=== PATIENT | male | born 1960 | race Caucasian/White ===

== ENCOUNTER 2020-09-13 07:16 | Emergency (ER) | payer OTHER, SELFPAY ==
[2020-09-13 07:28] VITALS: BP 124/85; PULSE 89; RESP 14; TEMP 36.6; O2SAT 99; BMI 25.0
--- NOTE | 2020-09-13 07:35 | ED.ALLEREA ---
HPI - Allergic Reaction General Chief complaint: Allergic Reaction Stated complaint: allergic reaction Time Seen by Provider: 09/13/20 07:30 Source: patient Mode of arrival: ambulatory Limitations: no limitations History of Present Illness HPI narrative: intermittent nighttimes/AM hives since July possibly related to new laundry detergent which he hasn't changed yet, he shares a bed and his partner has no symptoms, he just finished a burst of prednisone which helped last week, he has not been able to get into an subcontract manager yet due to COVID19. complaint: hives Onset (ago): week(s) (4) Exposure: cleaning product exposure Symptoms: rash and itching Severity: moderate Previous Allergic Reaction History: none Related Data Previous Rx's Medication Instructions Recorded prednisone 10 mg tablet 10 mg PO DAILY 6 Days #12 tab 09/03/20 cetirizine 10 mg PO DAILY #30 tab 09/13/20 famotidine [Pepcid] 20 mg PO DAILY #30 tab 09/13/20 Allergies Allergy/AdvReac Type Severity Reaction Status Date / Time No Known Allergies Allergy Unverified 05/11/20 14:49 [No Known Allergies*] Review of Systems Review of Systems: Constitutional : No Fever, No Chills ENT/Mouth : no oral swelling, No Hoarseness, No Swallowing Difficulty Eyes: No Eye Pain, No Swelling, No Redness Cardiovascular : No Chest Pain, No SOB Respiratory : No Cough, No Sputum, No Wheezing, No Smoke Exposure, No Dyspnea Gastrointestinal : No Nausea, No Vomiting, No Diarrhea, No abdominal Pain Genitourinary : No Dysuria, No Urinary Frequency, No Hematuria Musculoskeletal : No joint pain, No Myalgias, No Joint Swelling Skin : No Skin Lesions, positive rash Neuro : No Weakness, No Numbness, No Headache Psych : No Anxiety/Panic, No Depression Heme/Lymph: No Bruising, No Lymphadenopathy Endocrine : No Polyuria, No Polydipsia All other systems reviewed and are negative [facility] Past Medical History Medical History (Updated 09/13/20 @ 07:40 by Leelee Peraza DO) Allergic reaction Social History Social History (Updated 09/13/20 @ 07:38 by Leelee Peraza DO) Smoking Status: Never smoker Use of substances other than those prescribed or required for medical reasons: No Advance Directives: No Advance Directives Information Provided: No Physical Exam Vital Signs: Vital Signs: Last Vital Signs Temp 98 F 09/13/20 07:28 Pulse 89 09/13/20 07:28 Resp 14 09/13/20 07:28 BP 124/85 09/13/20 07:28 Pulse Ox 99 09/13/20 07:28 Body Mass Index 25.0 Appearance: Alert. Oriented X3. No acute distress. Eyes: Pupils equal, round and reactive to light. ENT: Pharynx normal. Neck: Normal inspection. Neck supple. CVS: Normal heart rate and rhythm. Pulses normal. Respiratory: No respiratory distress. Breath sounds normal. Abdomen: Soft and non-tender. Skin: Skin warm and dry. Normal skin color. diffuse hives noted on back, extremities Extremities: No lower extremity edema. No calf ttp Neuro: Oriented X 3. No motor deficit. No sensory deficit. MDM - Allergic Reaction MDM Narrative Medical decision making narrative: 60 yo male with no significant PMH dealing with intermittent hives since before [place] - possibly related to new laundry detergent, has taken prednisone with good effect, has not been able to see subcontract manager, he has no resp or oral issues - will start on pepcid and zyrtec until he can be established with subcontract manager, I've also instructed him to stop using detergent Discharge Plan Discharge Clinical Impression: Urticaria Patient Disposition: Home, Self-Care Instructions: Urticaria (ED) Additional Instructions: return to ED for any worsening symptoms or concerns stop using that laundry detergent, you need to clean everything that you've washed with it including bed sheets Prescriptions: New famotidine [Pepcid] 20 mg tablet 20 mg PO DAILY Qty: 30 RF: 0 cetirizine 10 mg tablet 10 mg PO DAILY Qty: 30 RF: 0 No Action prednisone 10 mg tablet 10 mg PO DAILY 6 Days Qty: 12 RF: 0 Referrals: Jorge Montejo PA-C [Primary Care Provider] - 1 day (today as scheduled, you should ask for allergy referral ) Stand Alone Forms: Work/School Release
[2020-09-13] MEDS: Loratadine 10 MG TABLET PO (07:47)
[2020-09-13] MEDS: diphenhydrAMINE HCL 25 MG TABLET PO (07:47)
[2020-09-13] MEDS: predniSONE 20 MG TABLET 60 MG PO (07:47)
[2020-09-13] MEDS: Famotidine 20 MG TABLET PO (07:48)
== END 2020-09-13 08:30 | disposition home or self-care (01) ==
LOC: HO.ED 07:41
PROVIDERS: Emergency Provider Emergency Medicine; PCP Physician Assistant
DX: L50.0 Allergic urticaria (principal); Z86.16 Personal history of COVID-19
CPT/HCPCS: 99283; 99284; Q0163

== ENCOUNTER 2020-09-23 10:13 | Outpatient (REF) | payer OTHER, SELFPAY ==
[2020-09-23 10:29] LABS: Hematocrit 44.6 % (42-52); Hemoglobin 14.6 g/dl (14.0-18.0); Mean Corpuscular HGB Conc 32.7 g/dl (31.0-36.0); Mean Corpuscular Hemoglobin 31.4 pg (27.0-33.0); Mean Corpuscular Volume 95.9 fL (80-98); Mean Platelet Volume 11.8 fL (9.4-12.4); Platelet Count 157 X10*3/uL (160-400); Red Blood Count 4.65 X10*6/uL (4.60-5.80); Red Cell Distribution Width 12.7 % (11.0-16.0); White Blood Count 5.3 X10*3/uL (4.8-10.8)
[2020-09-23 10:54] LABS: Alanine Aminotransferase 31 U/L (0-40); Albumin Level 4.2 g/dL (3.5-5.0); Alkaline Phosphatase 86 U/L (39-117); Anion Gap 12 (12-20); Aspartate Amino Transferase 27 U/L (5-37); Bilirubin Total 0.5 mg/dL (0.0-1.0); Blood Urea Nitrogen 13 mg/dL (9-16); Carbon Dioxide 29 mmol/L (22-29); Chloride 107 mmol/L (96-108); Cholesterol 197 mg/dL; Estimated Glomerular Filt Rate > 60; Glucose Fasting 92 mg/dL (60-99); HDL Cholesterol 67 mg/dL; LDL Cholesterol Calculated 118 mg/dl; Sodium 144 mmol/L (135-145); Total Protein 6.6 g/dL (6.5-8.0); Triglycerides 63 mg/dL
[2020-09-23 11:14] LABS: Prostate Specific Antigen Scr 0.92 ng/mL (<0.05-4.0); TSH reflex Free T4 0.79 uIU/mL (0.32-4.0)
== END 2020-09-23 10:14 | disposition home or self-care (01) ==
LOC: HO.LAB 10:13
PROVIDERS: Visit Provider Physician Assistant
DX: I10 Essential (primary) hypertension (principal); Z13.1 Encounter for screening for diabetes mellitus; Z13.220 Encounter for screening for lipoid disorders; Z13.29 Encounter for screening for other suspected endocrine disorder; Z12.5 Encounter for screening for malignant neoplasm of prostate
CPT/HCPCS: 36415; 80053; 80061; 84153; 84443; 85027

== ENCOUNTER 2021-01-24 11:46 | Day surgery (SDC) | payer OTHER, SELFPAY ==
[2021-01-17 12:56] VITALS: BMI 26.1
--- NOTE | 2021-01-23 11:04 | P.CONAN_ITS ---
HPI - Anesthesia Eval Consult details Narrative: 60yo M for Upper Endoscopy s/p repair of foramen of Morgagni hernia 2013 [facility] Active Problems Active Problems: All Active Problems (Updated 01/17/21 @ 12:50 by Cherry Box) Screening for diabetes mellitus (DM) (Acute) Screening for hypothyroidism (Acute) Screening for hypercholesterolemia (Acute) Constipation (Acute) Annual physical exam (Acute) Acute urticaria (Acute) Past Medical History Medical History Allergic reaction GERD (gastroesophageal reflux disease) Family History Family History Father In good health Mother In good health Surgical History Surgical History (Updated 01/17/21 @ 12:49 by Cherry Box) H/O colonoscopy History of right knee surgery Hx of hernia repair Social History Social History Alcohol intake: current Alcohol intake frequency: a few times a month Patient Tobacco Use Status: Never used Tobacco Advance Directives Information Provided: No Current occupational status: employed Current occupation: [employer] Allergies Allergy/AdvReac Type Severity Reaction Status Date / Time No Known Allergies Allergy Verified 10/25/20 16:08 [No Known Allergies*] Home Medications Medication Instructions Recorded Confirmed Last Taken Type omeprazole 20 mg PO DAILY 01/17/21 01/17/21 Unknown History Exam Exam Date and Time: January 23, 2021 1104 Height,Weight and Vital Signs: Height 6 ft 1 in Weight 89.811 kg Assessment and Plan Assessment Anesthesia Assessment: Chart Reviewed
[2021-01-24 11:58] VITALS: BP 108/73; PULSE 68; RESP 16; TEMP 37.1; O2SAT 98
[2021-01-24] MEDS: Lactated Ringers 1,000 ML 100 ML IVCONT (12:10)
--- NOTE | 2021-01-24 12:48 | P.CONAN_ITS ---
[facility] Active Problems Active Problems: All Active Problems (Updated 01/17/21 @ 12:50 by Cherry hussein) Screening for diabetes mellitus (DM) (Acute) Screening for hypothyroidism (Acute) Screening for hypercholesterolemia (Acute) Constipation (Acute) Annual physical exam (Acute) Acute urticaria (Acute) Past Medical History Medical History Allergic reaction GERD (gastroesophageal reflux disease) Family History Family History Father In good health Mother In good health Surgical History Surgical History (Updated 01/17/21 @ 12:49 by Cherry Box) H/O colonoscopy History of right knee surgery Hx of hernia repair Social History Social History Alcohol intake: current Alcohol intake frequency: a few times a month Patient Tobacco Use Status: Never used Tobacco Advance Directives Information Provided: No Current occupational status: employed Current occupation: [employer] Allergies Allergy/AdvReac Type Severity Reaction Status Date / Time No Known Allergies Allergy Verified 10/25/20 16:08 [No Known Allergies*] Active Medications: Current Medications Generic Name Dose Route Start Last Admin Trade Name Freq PRN Reason Stop Dose Admin Lactated Ringer's 1,000 mls @ 100 mls/hr 01/24/21 12:00 01/24/21 12:10 Lr IVCONT 100 mls/hr .Q10H OCTAVIO Administration Home Medications Medication Instructions Recorded Confirmed Last Taken Type omeprazole 20 mg PO DAILY 01/17/21 01/17/21 Unknown History Exam Exam Date and Time: January 24, 2021 1248 Height,Weight and Vital Signs: Height 6 ft 1 in Weight 89.811 kg Last Vital Signs Temp 98.8 F 01/24/21 11:58 Pulse 68 01/24/21 11:58 Resp 16 01/24/21 11:58 BP 108/73 01/24/21 11:58 Pulse Ox 98 01/24/21 11:58 Airway Mallampati Class: II TM Dist: >3cm Neck ROM: Full Heart: RRR Lungs: CTA
--- NOTE | 2021-01-24 13:04 | MHC.SHP ---
Pre-Procedural Eval Section B Chief Complaint: reflux disease Details of Present Illness: see H&P no changes Relevant Family History (Specify if Yes): Yes Relevant Social History: None Present Medications: see Short Stay Collaborative assessment Medical History: No relevant PMH History of Previous Operations: No relevant previous surgery Allergies: Allergies Allergy/AdvReac Type Severity Reaction Status Date / Time No Known Allergies Allergy Verified 10/25/20 16:08 [No Known Allergies*] Review of Systems Sugical H&P ROS: Negative: Constitution, Cardiovascular, Respiratory, Neurological, Psychiatric, Hem-Onc, Allergic/Immunologic, Gastrointestinal, Genitourinary, Musculoskeletal, Integumentary, Endocrine and Eyes/Ears/Nose/Throat Exam Surgical H&P Exam: Normal: HEENT, Normal: Heart, Normal: Lungs, Normal: Extremities, Normal: Abdomen, Normal: Skin and Normal: Neurological Plan Diagnosis/Plan: Unchanged I have reviewed the history and physical and performed a pertinent physical examination on my patient. No changes have occurred unless specified.
--- NOTE | 2021-01-24 13:22 | P.BOP_ITS ---
Brief Operative Note Date of Service: 01/24/21 Pre-op diagnosis: gerd Post-op diagnosis: same Surgeon: Servando Lange Anesthesia: MAC Was an Supervisor Production Managing used for this Procedure?: No Estimated blood loss (mL): 5 Pathology: other (bxs antrum, egj, duodenum) Condition: stable Disposition: PACU
[2021-01-24 13:24] VITALS: BP 84/56; PULSE 76; RESP 16; TEMP 36.1; O2SAT 99
[2021-01-24 13:39] VITALS: BP 100/61; PULSE 69; RESP 18; O2SAT 99
--- NOTE | 2021-01-25 00:03 | OP_ITS ---
SURGEON: Servando Lange MD INDICATIONS: Gastroesophageal reflux disease. PREOPERATIVE DIAGNOSIS: POSTOPERATIVE DIAGNOSIS: PROCEDURE PERFORMED: Upper endoscopy with biopsy. ESTIMATED BLOOD LOSS: COMPLICATIONS: ANESTHESIA: ASSISTANTS: SPECIMENS: MEDICATIONS: Monitored anesthesia care. DESCRIPTION OF PROCEDURE: History and physical performed. The risks and benefits of the procedure were explained to the patient. Informed consent was obtained. The patient was placed in the left lateral decubitus position. The Olympus video gastroscope was introduced into the esophagus, stomach, and duodenum. Examination was performed. The scope was removed. He tolerated the procedure well and was transferred to recovery area in stable condition. FINDINGS: Esophagus: The esophagus showed an irregular EG junction. There was a sliding hiatal hernia. Stomach: The stomach showed no evidence of masses, ulcers, or polyps. Duodenum: The bulb and second portion were normal. Biopsies were obtained from the second portion of the duodenum, the antrum and the EG junction, which was slightly irregular, but showed no esophagitis. IMPRESSION: Gastroesophageal reflux disease. RECOMMENDATIONS: 1. Follow up the biopsy results. 2. Continue pantoprazole for better control of symptoms. MD STEPHANIE Orr/JACI / [id number]
== END 2021-01-24 14:39 | disposition home or self-care (01) ==
PROVIDERS: PCP Physician Assistant; Visit Provider Internal Medicine Gastroenterology
PROC: 0DJ08ZZ Inspection of Upper Intestinal Tract, Via Natural or Artificial Opening Endoscopic (ICD-10-PCS; CPT 43235; principal; 2021-01-24 13:00)
DX: K21.9 Gastro-esophageal reflux disease without esophagitis (principal); Z79.899 Other long term (current) drug therapy
CPT/HCPCS: 43239; 88305; 88342

== ENCOUNTER 2021-02-19 07:00 | Emergency (ER) | payer OTHER, SELFPAY ==
[2021-02-19 07:19] VITALS: BP 128/72; PULSE 85; RESP 12; TEMP 36.6; O2SAT 99; BMI 25.8
--- NOTE | 2021-02-19 08:24 | ED_ITS ---
HPI - Allergic Reaction General Chief complaint: Allergic Reaction Stated complaint: rash Time Seen by Provider: 02/19/21 08:06 Source: patient Mode of arrival: ambulatory Limitations: no limitations History of Present Illness HPI narrative: 60-year-old male who presents emergency department for evaluation of an hive/urticarial rash. Patient states that he has been hives for the past 6 months. He states that the gets them daily, he describes them as small patches that usually resolves and are in different parts of his body. The patient has seen his PCP and is scheduled to see an oil and gas superintendent 1 month from now. The patient states that 2 weeks prior he was on a course of prednisone and his rash resolved completely. He states that over the past 24 hours the rash at this returned and is over his entire body which is new for him, it is usually over parts his body. The rash is pruritic. he states he has some slight difficulty swallowing. He has had this symptom in the past and had endoscopy which was unremarkable. He denied lightheadedness, dizziness, shortness of breath or dyspnea on exertion. He does have associated nausea with the rash. The patient took a dose of Benadryl and prednisone 60 mg mg this morning and his doctor prescribed a taper over 6 days. The patient has been vaccinated for COVID-19 received to 2nd shot in December of 2020 Related Data Home Medications Medication Instructions Recorded Confirmed omeprazole 20 mg PO DAILY 01/17/21 01/17/21 Previous Rx's Medication Instructions Recorded cetirizine 10 mg tablet 10 mg PO DAILY 90 Days #90 tab 10/25/20 docusate sodium 100 mg capsule 100 mg PO DAILY 90 Days #90 cap 10/25/20 lactulose 20 gram/30 mL oral 20 g PO BID PRN 10 Days #600 ml 10/25/20 solution prednisone 10 mg tablet 10 mg PO DAILY 6 Days #12 tab 02/17/21 epinephrine [EpiPen 2-Sukhdeep] 0.3 mg IM Q10M PRN #2 ea 02/19/21 prednisone 60 mg PO DAILY 3 Days #9 tab 02/19/21 Allergies Allergy/AdvReac Type Severity Reaction Status Date / Time No Known Allergies Allergy Verified 10/25/20 16:08 [No Known Allergies*] Review of Systems Review of Systems: Yes all other systems are reviewed and are negative [facility] Past Medical History [facility] Narrative: Past medical history : GERD ( endoscopy 01/24/2021). 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 Social history: He denies tobacco, drinks alcohol several times a month and he denies drug use. Medical History Allergic reaction GERD (gastroesophageal reflux disease) Surgical History H/O colonoscopy History of right knee surgery Hx of hernia repair Family History Family History Father In good health Mother In good health Social History Social History Alcohol intake: current Alcohol intake frequency: a few times a month Patient Tobacco Use Status: Never used Tobacco Advance Directives: Yes Advance Directives Information Provided: Yes Advance Directives on File: No Current occupational status: employed Current occupation: [employer] Physical Exam Vital Signs: Vital Signs: Last Vital Signs Temp 97.8 F 02/19/21 07:19 Pulse 76 02/19/21 08:43 Resp 16 02/19/21 08:43 BP 105/74 02/19/21 08:43 Pulse Ox 97 02/19/21 08:43 Body Mass Index 25.8 Const: General: cooperative and healthy appearing Orientation/consciousness: oriented to person and oriented to place Limitations: no limitations HENMT: Head: Yes normal to inspection, Yes normocephalic and Yes atraumatic Ears: external ears normal General nose exam: Normal external nose present Face and sinus: Yes normal facial exam Mouth: Normal oral and palatal mucosa present Throat: Yes posterior oropharynx normal Eyes: Periorbital: periorbital findings normal Eyelids: Yes eyelids normal Conjunctivae: conjunctivae normal Sclerae: sclerae normal Corneas: corneas normal Pupils: Equal, round and reactive pupils present Direct Ophthalmoscopy: normal light reflex Neck: Neck: Yes full ROM, Yes no lymphadenopathy, Yes no meningeal signs, Yes trachea midline and Yes supple Chest: Chest palpation & inspection: normal inspection of the chest and normal palpation of entire chest wall Resp: Effort & Inspection: normal respiratory effort and able to speak in complete sentences Auscultation: clear to auscultation bilaterally Cardio: Rate: regular rate Rhythm: regular rhythm Heart sounds: S1 normal heart sound present, S2 normal heart sound present and no murmurs GI: Inspection: Yes normal to inspection Palpation (GI): Soft to palpation, nontender, no guarding, not rigid and No hepatosplenomegaly present : General: Yes no CVA tenderness Back/Spine/Pelvis: Back: no CVA tenderness Cervical Spine: normal cervical lordosis Thoracic/Lumbar Spine: thoracic and lumbar spine normal to inspection Skin: Other: diffuse urticarial rash over his entire body, blanches to pressure Lesions: no lesions Wounds: no wounds Neuro: General: oriented to person, oriented to place and no meningeal signs Cranial nerves: Yes CN's II-XII intact bilaterally and Yes Equal, round and reactive pupils present Cognition (Neuro): normal cognition Motor exam (neuro): 5/5 motor strength present throughout Extrem: General: Yes normal to inspection and Yes full ROM Psych: Appearance: well kempt Mental Status: mental status grossly normal Speech and movement: Normal speech and movement present Affect: normal affect Attitude: cooperative Thought process: Normal thought process present Thought content: Normal thought content present Course Course Course Narrative: 60-year-old male who presents emergency department for evaluation of a diffuse, pruritic, urticarial rash times 1-2 days. Patient has been having an urticarial rash daily for the last 6 months but has never had diffuse urticaria. He has had some slight difficulty swallowing otherwise has no other complaints. Vital signs are stable. Physical examination revealed diffuse, blanching, urticaria rash. The patient will be placed on hospital monitor and treated with epinephrine 0.5 mg IM. He will also be given Solu- Medrol 125 mg IV. 0909: The patient did have improvement of his urticarial rash but not complete resolution after receiving the intramuscular epinephrine and IV Solu-Medrol. The patient has no other concerning symptoms and will be discharged home. I did prescribe an EpiPen for him and discuss the use of this medication for allergic reactions. Patient was advised to take Zyrtec twice a day to see if this improves his urticaria. The patient was given a another prescription for prednisone 60 mg orally to take a total of 5 days a pulse dose and then to taper as prescribed by his doctor. The patient was given verbal and printed instructions prior to discharge. The patient was advised to follow-up with their PCP in 2 days and to return to the emergency department if their symptoms get worse or if they develop any new symptoms that are concerning to them Discharge Plan Discharge Clinical Impression: Urticaria Patient Disposition: Home, Self-Care Instructions: Urticaria (ED) Additional Instructions: You received epinephrine 0.3 mg IM here in emergency department. You also receive Solu-Medrol 125 mg IV ( this is a steroid). I want you to take prednisone 60 mg once a day for total 5 days and then taper to off as directed by your doctor. I am prescribing an epinephrine pen for you in the event that You get severe symptoms such as difficulty swallowing, shortness of breath, lightheadedness, dizziness. Take Zyrtec 1 pill twice a day, this is a long acting antihistamine and this may help with your high. Insert follow-up return Prescriptions: New epinephrine [EpiPen 2-Sukhdeep] 0.3 mg/0.3 mL auto-injector 0.3 mg IM Q10M PRN (Reason: anaphylaxis) Qty: 2 RF: 0 prednisone 20 mg tablet 60 mg PO DAILY 3 Days Qty: 9 RF: 0 No Action prednisone 10 mg tablet 10 mg PO DAILY 6 Days Qty: 12 RF: 0 omeprazole 20 mg Tablet,Delayed Release (Dr/Ec) 20 mg PO DAILY RF: 0 lactulose 20 gram/30 mL solution 20 g PO BID PRN (Reason: constipation) 10 Days Qty: 600 RF: 0 cetirizine 10 mg tablet 10 mg PO DAILY 90 Days Qty: 90 RF: 2 docusate sodium [Colace] 100 mg capsule 100 mg PO DAILY 90 Days Qty: 90 RF: 1
[2021-02-19 08:39] VITALS: PULSE 75
[2021-02-19] MEDS: EPINEPHrine 1 MG/ML VIAL 0.3 MG IM (08:39)
[2021-02-19] MEDS: methylPREDNISolone Sod Succ 125 MG/2 ML VIAL IVPUSH (08:40)
[2021-02-19 08:43] VITALS: BP 105/74; PULSE 76; RESP 16; O2SAT 97
== END 2021-02-19 09:40 | disposition home or self-care (01) ==
PROVIDERS: Emergency Provider Emergency Medicine Emergency Medical Services; PCP Physician Assistant
DX: L50.9 Urticaria, unspecified (principal)
CPT/HCPCS: 96372; 96374; 99284; J0171; J2930

== ENCOUNTER 2021-11-06 08:22 | Outpatient (REF) | payer OTHER, SELFPAY ==
--- NOTE | ~2021-11-06 | XR_ITS ---
EXAMINATION: XR LUMBOSACRAL SPINE CLINICAL INFORMATION: Low back pain COMPARISON: Previous x-ray January 2019 TECHNIQUE: Three views of the lumbosacral spine. FINDINGS: Bone alignment is normal. No fracture or dislocation is seen. There is disc space narrowing at L5-S1. Disc spaces are otherwise normal. There is mild degenerative spondylosis of the lower thoracic and upper lumbar spine. There is lower lumbar spine facet arthritis. XR/XR lumbar spine 2-3V IMPRESSION: Degenerative changes.
[2021-11-06 09:20] LABS: Hematocrit 46.5 % (42.0-52.0); Hemoglobin 15.1 g/dl (14.0-18.0); Mean Corpuscular HGB Conc 32.5 g/dl (31.0-36.0); Mean Corpuscular Hemoglobin 30.9 pg (27.0-33.0); Mean Corpuscular Volume 95.3 fL (80.0-98.0); Mean Platelet Volume 12.7 fL (9.4-12.4); Platelet Count 153 X10*3/uL (160-400); Red Blood Count 4.88 X10*6/uL (4.60-5.80); Red Cell Distribution Width 13.2 % (11.0-16.0); White Blood Count 4.1 X10*3/uL (4.8-10.8)
[2021-11-06 10:05] LABS: Estimated Average Glucose 97 mg/dL
[2021-11-06 10:09] LABS: Alanine Aminotransferase 17 U/L (0-40); Albumin Level 3.8 g/dL (3.5-5.0); Alkaline Phosphatase 84 U/L (39-117); Anion Gap 11 (12-20); Aspartate Amino Transferase 17 U/L (5-37); Bilirubin Total 0.9 mg/dL (0.0-1.0); Blood Urea Nitrogen 13 mg/dL (9-16); Calcium 9.3 mg/dL (8.4-10.2); Carbon Dioxide 28 mmol/L (22-29); Chloride 106 mmol/L (96-108); Cholesterol 149 mg/dL; Estimated Glomerular Filt Rate > 60; Glucose Fasting 98 mg/dL (60-99); HDL Cholesterol 47 mg/dL; LDL Cholesterol Calculated 79 mg/dl; Potassium 4.5 mmol/L (3.3-5.1); Sodium 140 mmol/L (135-145); Total Protein 6.2 g/dL (6.5-8.0); Triglycerides 116 mg/dL
[2021-11-06 10:28] LABS: Prostate Specific Antigen Scr 0.71 ng/mL (<0.05-4.0)
== END 2021-11-06 08:23 | disposition home or self-care (01) ==
LOC: HO.XRAY 08:22
PROVIDERS: PCP Physician Assistant; Visit Provider Physician Assistant
DX: Z13.29 Encounter for screening for other suspected endocrine disorder (principal); Z12.5 Encounter for screening for malignant neoplasm of prostate; Z13.220 Encounter for screening for lipoid disorders; M54.50 Low back pain, unspecified
CPT/HCPCS: 36415; 72100; 80053; 80061; 83036; 84153; 84443; 85027

== ENCOUNTER 2022-01-20 05:42 | Emergency (ER) | payer OTHER, SELFPAY ==
[2022-01-20 06:08] VITALS: BP 109/71; PULSE 67; RESP 18; TEMP 36.8; O2SAT 100; BMI 26.4
[2022-01-20 06:26] LABS: MANUAL DIFF FLAG NO
[2022-01-20 06:43] LABS: Basophils Percent Auto 0.2 % (0-2); Eosinophils Absolute Auto 0.1 X10*3/uL (0.0-0.4); Eosinophils Percent Auto 2.7 % (0-4); Hematocrit 44.1 % (42.0-52.0); Hemoglobin 14.7 g/dl (14.0-18.0); Imm Gran Abs Auto 0.01 X10*3/uL (0.00-0.03); Imm Gran Pct Auto 0.2 % (0.0-0.4); Lymphocytes Absolute Auto 1.2 X10*3/uL (1.2-4.9); Lymphocytes Percent Auto 26.7 % (20-40); Mean Corpuscular HGB Conc 33.3 g/dl (31.0-36.0); Mean Corpuscular Hemoglobin 31.2 pg (27.0-33.0); Mean Corpuscular Volume 93.6 fL (80.0-98.0); Mean Platelet Volume 11.8 fL (9.4-12.4); Monocytes Absolute Auto 0.3 X10*3/uL (0.1-1.2); Monocytes Percent Auto 7.3 % (2-11); Neutrophils Absolute Auto 2.8 x10*3/uL (2.0-8.3); Neutrophils Percent Auto 62.9 % (45-73); Platelet Count 174 X10*3/uL (160-400); Red Blood Count 4.71 X10*6/uL (4.60-5.80); Red Cell Distribution Width 13.5 % (11.0-16.0); White Blood Count 4.5 X10*3/uL (4.8-10.8)
[2022-01-20 06:46] LABS: Alanine Aminotransferase 14 U/L (0-40); Albumin Level 3.6 g/dL (3.5-5.0); Alkaline Phosphatase 79 U/L (39-117); Anion Gap 10 (12-20); Aspartate Amino Transferase 15 U/L (5-37); Blood Urea Nitrogen 11 mg/dL (9-16); Calcium 9.1 mg/dL (8.4-10.2); Carbon Dioxide 24 mmol/L (22-29); Chloride 109 mmol/L (96-108); Creatinine Clr Calc Pharmacy 118.3; Estimated Glomerular Filt Rate > 60; Glucose Random 99 mg/dL (60-115); Sodium 139 mmol/L (135-145)
--- NOTE | 2022-01-20 08:39 | ED_ITS ---
HPI - General Adult General Chief complaint: Skin/Abscess/Foreign Body Stated complaint: ? allergic reaction; hives/dry mouth Time Seen by Provider: 01/20/22 08:39 Source: patient Mode of arrival: ambulatory Limitations: no limitations History of Present Illness HPI narrative: 61-year-old male came in for evaluation of rash/hives. Patient been following with hydraulic lift driver/non destructive evaluation manager for frequent hives, reportedly by the patient there is no underlying cause of patient's symptoms, patient received Xolair injection as per non destructive evaluation manager recommendation. Been having hives diffusely since yesterday, patient declined using any new medication, no change in his daily routine. Patient declined any shortness of breath, no sore throat, nose throat swelling, no change of voice. Related Data Home Medications Medication Instructions Recorded Confirmed levocetirizine 5 mg tablet 5 mg PO DAILY 10/29/21 01/15/22 pantoprazole 40 mg tablet,delayed 40 mg PO DAILY 10/29/21 01/15/22 release Previous Rx's Medication Instructions Recorded docusate sodium 100 mg capsule 100 mg PO DAILY 90 Days #90 cap 10/25/20 (Colace) epinephrine 0.3 mg/0.3 mL 0.3 mg (0.3 mL) IM Q10M PRN #2 ea 02/19/21 injection, auto-injector (EpiPen 2-Sukhdeep) lactulose 20 gram/30 mL oral 20 g (30 mL) PO BID PRN 30 Days 10/29/21 solution #1500 ml magnesium hydroxide 400 mg/5 mL 2,400 mg (30 mL) PO DAILY PRN 7 11/05/21 oral suspension (Milk of Magnesia) Days #355 ml metoclopramide HCl 5 mg tablet 5 mg PO TID 15 Days #45 tab 11/20/21 (Reglan) prednisone 20 mg tablet 20 mg PO BID #4 tab 01/20/22 Allergies Allergy/AdvReac Type Severity Reaction Status Date / Time No Known Allergies Allergy Verified 10/29/21 15:51 [No Known Allergies*] Review of Systems Review of Systems: All other systems are reviewed and are negative Constitutional: Reports as per HPI and Reports no additional constitutional complaints Eyes: Reports as per HPI and Reports no additional eye complaints Reports system reviewed and no additional complaints, except as documented Cardiovascular: Reports as per HPI and Reports no additional cardiovascular complaints Respiratory: Reports as per HPI and Reports no additional respiratory complaints Gastrointestinal: Reports as per HPI and Reports no additional gastrointestinal complaints Genitourinary: Reports no additional female genitourinary complaints Musculoskeletal: Reports no additional musculoskeletal complaints Skin/Breast: Reports system reviewed and no additional complaints, except as docu Psychiatric: Reports no additional psychiatric complaints Endocrine: Reports no additional endocrine complaints Hematologic/Lymphatic: Reports no additional hematologic/lymphatic complaints Allergic/Immunologic: Reports no additional allergic/immunologic complaints Reports system reviewed and no additional complaints, except as documented and Reports Abnormal speech present [facility] Past Medical History Medical History Allergic reaction COVID-19 vaccine series completed GERD (gastroesophageal reflux disease) Surgical History H/O colonoscopy History of esophagogastroduodenoscopy (EGD) History of right knee surgery Hx of hernia repair Family History Family History Father In good health Mother In good health Social History Social History Housing: House Alcohol intake: current Alcohol intake frequency: a few times a month Patient Tobacco Use Status: Never used Tobacco Advance Directives: No Advance Directives Information Provided: Yes Current occupational status: employed Current occupation: [employer] Physical Exam ED Vital Signs: Vital Signs - 24 hr 01/20/22 06:08 Temperature 98.3 F Pulse Rate 67 Respiratory Rate 18 Blood Pressure 109/71 Pulse Oximetry 100 BMI result Body Mass Index 26.4 Vital signs have been reviewed as appeared to be correct. Blood pressure normal. Heart rate normal. Respiration rate normal. Temperature normal. O xygen saturation normal. Appearance: Alert. Oriented X3. No acute distress. Head: Normal external exam. Normocephalic. Atraumatic. No Dobbs signs noted. No raccoon eyes noted Eyes: PERRLA. EOMI. Conjunctiva and sclera normal. Eyelids normal. ENT: TM's Normal. Pharynx normal. Uvula midline. Moist mucous membranes. No trismus noted. No drooling noted. No muffled voice noted. No stridor. Neck: Normal inspection. Neck supple. FROM. No adenopathy. Thyroid Normal. No meningeal signs. No neck mass noted. CVS: Normal heart rate and rhythm. Heart sound normal. No murmurs noted. Pulses normal throughout. Respiratory: No respiratory distress. Painless inspiration. Breath sounds normal. No wheezes/rales/rhonchi noted. Chest nontender. No accessory muscle usage noted or decreased air movement noted. Abdomen: Soft and nontender. Bowel sounds normal in all 4 quadrants. No distention noted. No organomegaly noted. No visible injury noted. Back: No CVA tenderness. Full range of motion noted. Skin: Diffuse hives. Extremities: No lower extremity edema. Extremities exhibit normal range of motion. Extremities nontender. Neuro: Oriented X 3. Cranial nerve exam: II-XII are grossly intact No motor deficit. No sensory deficit. Reflexes normal. Course Course Course Narrative: Assessment and plan. 61-year-old male came in for evaluation of hives, no respiratory symptoms, no signs of angioedema. Hives responded in the past to prednisone. Will start the patient on 2 days of prednisone. Medical Decision Making Lab Data Lab results reviewed: Yes I reviewed the patient's lab results. Result diagrams: 01/20/22 06:22 01/20/22 06:22 Labs: Lab Results 01/20/22 01/20/22 Range/Units 06:22 06:22 WBC 4.5 L (4.8-10.8) X10*3/uL RBC 4.71 (4.60-5.80) X10*6/uL Hgb 14.7 (14.0-18.0) g/dl Hct 44.1 (42.0-52.0) % MCV 93.6 (80.0-98.0) fL MCH 31.2 (27.0-33.0) pg MCHC 33.3 (31.0-36.0) g/dl RDW 13.5 (11.0-16.0) % Plt Count 174 (160-400) X10*3/uL MPV 11.8 (9.4-12.4) fL Immature Gran % (Auto) 0.2 (0.0-0.4) % Neut % (Auto) 62.9 (45-73) % Lymph % (Auto) 26.7 (20-40) % [place] % (Auto) 7.3 (2-11) % Eos % (Auto) 2.7 (0-4) % Baso % (Auto) 0.2 (0-2) % Lymph # (Auto) 1.2 (1.2-4.9) X10*3/uL [place] # (Auto) 0.3 (0.1-1.2) X10*3/uL Eos # (Auto) 0.1 (0.0-0.4) X10*3/uL Baso # (Auto) 0.0 (0.0-0.2) X10*3/uL Abs Immat Gran (auto) 0.01 (0.00-0.03) X10*3/uL Absolute Neuts (auto) 2.8 (2.0-8.3) x10*3/uL Absolute Nucleated RBC 0.000 (0.0-0.012) X10*3/uL Nucleated RBC % (auto) 0.0 (0.0-0.2) /100WBC Sodium 139 (135-145) mmol/L Potassium 4.0 (3.3-5.1) mmol/L Chloride 109 H (96-108) mmol/L Carbon Dioxide 24 (22-29) mmol/L Anion Gap 10 L (12-20) BUN 11 (9-16) mg/dL Creatinine 0.75 (0.5-1.4) mg/dL Estim Creat Clear Calc 118.3 Estimated GFR > 60 Random Glucose 99 (60-115) mg/dL Calcium 9.1 (8.4-10.2) mg/dL Total Bilirubin 1.0 (0.0-1.0) mg/dL AST 15 (5-37) U/L ALT 14 (0-40) U/L Alkaline Phosphatase 79 (39-117) U/L Total Protein 6.0 L (6.5-8.0) g/dL Albumin 3.6 (3.5-5.0) g/dL Discharge Plan Discharge Clinical Impression: Urticaria Patient Disposition: Home, Self-Care Instructions: Urticaria (ED) Prescriptions: New prednisone 20 mg tablet 20 mg PO BID Qty: 4 0RF No Action magnesium hydroxide [Milk of Magnesia] 400 mg/5 mL suspension 2,400 mg PO DAILY PRN (Reason: constipation) 7 Days Qty: 355 0RF metoclopramide HCl [Reglan] 5 mg tablet 5 mg PO TID 15 Days Qty: 45 0RF epinephrine [EpiPen 2-Sukhdeep] 0.3 mg/0.3 mL auto-injector 0.3 mg IM Q10M PRN (Reason: anaphylaxis) Qty: 2 0RF Rx Instructions: for 2 doses pantoprazole 40 mg tablet,delayed release (DR/EC) 40 mg PO DAILY 0RF levocetirizine 5 mg tablet 5 mg PO DAILY 0RF lactulose 20 gram/30 mL solution 20 g PO BID PRN (Reason: laxative effect) 30 Days Qty: 1500 0RF docusate sodium [Colace] 100 mg capsule 100 mg PO DAILY 90 Days Qty: 90 1RF Referrals: Jorge Montejo PA-C [Primary Care Provider] -
[2022-01-20] MEDS: predniSONE 20 MG TABLET 40 MG PO (08:52)
== END 2022-01-20 08:55 | disposition home or self-care (01) ==
PROVIDERS: Emergency Provider Emergency Medicine; PCP Physician Assistant
DX: L50.0 Allergic urticaria (principal); Z79.899 Other long term (current) drug therapy
CPT/HCPCS: 36415; 80053; 85025; 99283

== ENCOUNTER 2022-01-22 08:33 | Day surgery (SDC) | payer OTHER, SELFPAY ==
[2022-01-15 15:25] VITALS: BMI 26.4
--- NOTE | 2022-01-18 10:06 | HO.ANESPROP2 ---
Documented by User: Joyce Ly NP 01/18/22 10:07 HPI - Anesthesia Eval Consult details Narrative: 61yo M for Upper Endoscopy and Colonoscopy PMFSH Active Problems Active Problems: All Active Problems (Updated 01/15/22 @ 15:19 by Cherry Box RN) Screening for diabetes mellitus (DM) (Acute) Screening for hypothyroidism (Acute) Screening for hypercholesterolemia (Acute) Constipation (Acute) Annual physical exam (Acute) Acute urticaria (Acute) Lumbar spine pain (Acute) Past Medical History Medical History Allergic reaction COVID-19 vaccine series completed GERD (gastroesophageal reflux disease) Family History Family History Father In good health Mother In good health Surgical History Surgical History H/O colonoscopy History of esophagogastroduodenoscopy (EGD) History of right knee surgery Hx of hernia repair Social History Social History Housing: House Alcohol intake: current Alcohol intake frequency: a few times a month Patient Tobacco Use Status: Never used Tobacco Use of substances other than those prescribed or required for medical reasons: No Advance Directives Information Provided: Yes (brochure mailed) Advance Directives on File: No Current occupational status: employed Current occupation: [employer] Allergies Allergy/AdvReac Type Severity Reaction Status Date / Time No Known Allergies Allergy Verified 10/29/21 15:51 [No Known Allergies*] Home Medications Medication Instructions Recorded Confirmed Last Taken Type levocetirizine 5 mg tablet 5 mg PO DAILY 10/29/21 01/15/22 Unknown History pantoprazole 40 mg tablet,delayed 40 mg PO DAILY 10/29/21 01/15/22 Unknown History release Exam Exam Date and Time: January 18, 2022 1006 Height,Weight and Vital Signs: Height 6 ft Weight 88.451 kg Pertinent Lab Results Pertinent Lab Results: Laboratory Tests 11/06/21 11/06/21 08:27 Unknown WBC 4.1 L Hgb 15.1 Hct 46.5 Plt Count 153 L Sodium 140 Potassium 4.5 Chloride 106 Carbon Dioxide 28 BUN 13 Creatinine 0.76 Assessment and Plan Assessment Anesthesia Assessment: Chart Reviewed Documented by User: Abbi Gallardo MD 01/22/22 09:51 [facility] Past Medical History Medical History Allergic reaction COVID-19 vaccine series completed GERD (gastroesophageal reflux disease) Family History Family History Father In good health Mother In good health Family history of problems with anesthesia: No Surgical History Surgical History H/O colonoscopy History of esophagogastroduodenoscopy (EGD) History of right knee surgery Hx of hernia repair History of Problems with Anesthesia: No Social History Social History Housing: House Alcohol intake: current Alcohol intake frequency: a few times a month Patient Tobacco Use Status: Never used Tobacco Use of substances other than those prescribed or required for medical reasons: No Advance Directives Information Provided: Yes (brochure mailed) Advance Directives on File: No Current occupational status: employed Current occupation: [employer] Allergies Allergy/AdvReac Type Severity Reaction Status Date / Time No Known Allergies Allergy Verified 10/29/21 15:51 [No Known Allergies*] Home Medications Medication Instructions Recorded Confirmed Last Taken Type levocetirizine 5 mg tablet 5 mg PO DAILY 10/29/21 01/15/22 Unknown History pantoprazole 40 mg tablet,delayed 40 mg PO DAILY 10/29/21 01/15/22 Unknown History release Exam Height,Weight and Vital Signs: Height 6 ft Weight 88.451 kg Vital Signs Temp Pulse Resp BP Pulse Ox 01/22/22 08:52 97.4 F 81 18 120/76 97 Airway Mallampati Class: II TM Dist: >3cm Neck ROM: Full Loose/Missing/Broken Teeth: No Heart: RRR Lungs: CTAB Assessment and Plan Assessment Anesthesia Assessment: Anesthesia Plan Discussed Final Anesthetic Review Family History of Problems with Anesthesia: No History of Problems with Anesthesia: No NPO: Yes ASA Class: II Final Preanesthetic Review: No Changes in Pt Med Stat, Meds/Allgs Chart Reviewed, Consent Obtained/Reviewed and Anes Risks/Benef Reviewed Patient Risk: Low Procedure Risk: Low Assessment/Block/Sedation in SS: Assess/Block/Sedation-SS Anesthetic Plan Anesthetic Plan: MAC: Disposition: Standard PACU
[2022-01-22 08:52] VITALS: BP 120/76; PULSE 81; RESP 18; TEMP 36.3; O2SAT 97
--- NOTE | 2022-01-22 09:26 | MHC.SHP ---
Pre-Procedural Eval Section A Date of Service: 01/22/22 The patient is an INPATIENT: No Changes since office visit: No Cold of Flu in the past 2 weeks, No New Medical Problems, No Changes in Medication and No Patient answered all questions The History & Physical has been completed within 30 days and I have reviewed it.: Yes Section B Chief Complaint: Left upper quadrant pain Allergies: Allergies Allergy/AdvReac Type Severity Reaction Status Date / Time No Known Allergies Allergy Verified 10/29/21 15:51 [No Known Allergies*] Plan I have reviewed the history and physical and performed a pertinent physical examination on my patient. No changes have occurred unless specified.
[2022-01-22 10:10] VITALS: BP 93/55; PULSE 67; RESP 16; TEMP 36.1; O2SAT 96
--- NOTE | 2022-01-22 10:10 | PM.OP ---
Brief Operative Note Date of Service: 01/22/22 Pre-op diagnosis: luq pain, screening Post-op diagnosis: same (colon polyps) Procedure: egd, colon Surgeon: Servando Lange Anesthesia: MAC Was an Patient Manager used for this Procedure?: No Estimated blood loss (mL): 5 Pathology: other (see req) Condition: stable Disposition: PACU
[2022-01-22 10:25] VITALS: BP 107/64; PULSE 73; RESP 18; TEMP 36.1; O2SAT 98
--- NOTE | 2022-01-22 10:54 | OP_ITS ---
SURGEON: Servando Lange MD INDICATIONS: Left upper quadrant pain and colon cancer screening. PREOPERATIVE DIAGNOSIS: POSTOPERATIVE DIAGNOSIS: PROCEDURE PERFORMED: Upper endoscopy with biopsy, colonoscopy to the terminal ileum with snare polypectomy. ESTIMATED BLOOD LOSS: COMPLICATIONS: ANESTHESIA: Medications, monitored anesthesia care. ASSISTANTS: SPECIMENS: DESCRIPTION OF PROCEDURE: History and physical performed. The risks and benefits of the procedure were explained to the patient. Informed consent was obtained. The patient was placed in left lateral decubitus position. The Olympus video gastroscope was introduced into the esophagus, stomach, and duodenum. Examination was performed. The scope was removed. He was repositioned for the colonoscopy. A digital rectal exam was performed and was found to be normal. The Olympus pediatric video colonoscope was introduced in the rectum and advanced to the cecum without difficulty. The cecum was identified by transillumination palpation and identification of the ileocecal valve. Examination was performed. The scope was removed. He tolerated both procedures well and was returned to the recovery area in stable condition. FINDINGS: Upper endoscopy: 1. Esophagus: The esophagus was normal. There was a 3 cm hiatal hernia. There was a nonobstructive Schatzki ring. The EG junction was slightly irregular. No esophagitis was present. Biopsies were obtained from the EG junction. 2. Stomach: The stomach showed no evidence of masses or ulcers. Antral biopsies were obtained to evaluate for H pylori. 3. Duodenum: The bulb and second portion were normal. Colonoscopy: The terminal ileum was normal. The visualized colonic mucosa was normal. The quality of the prep was good. In the right colon, at about 80 cm were 3 polyps, largest measuring 10 mm. This was removed piecemeal with the snare, and the other 2 measuring less than 10 mm were also snared. No other polyps were identified. Retroflexed examination showed some moderate-sized internal hemorrhoids. IMPRESSION: Colon polyps, normal upper endoscopy. RECOMMENDATION: Follow up the biopsy results. MD STEPHANIE Orr/JACI / [id number]
== END 2022-01-22 10:50 | disposition home or self-care (01) ==
PROVIDERS: PCP Physician Assistant; Visit Provider Internal Medicine Gastroenterology
PROC: (CPT 45385; principal; 2022-01-22 10:10)
DX: Z12.11 Encounter for screening for malignant neoplasm of colon (principal); Z86.010 Personal history of colon polyps; D12.4 Benign neoplasm of descending colon; K64.8 Other hemorrhoids; R10.12 Left upper quadrant pain; K29.50 Unspecified chronic gastritis without bleeding; K22.2 Esophageal obstruction; K44.9 Diaphragmatic hernia without obstruction or gangrene; K21.9 Gastro-esophageal reflux disease without esophagitis; Z79.899 Other long term (current) drug therapy
CPT/HCPCS: 45385; 43239; 88305; 88342

== ENCOUNTER 2022-03-27 08:00 | Emergency (ER) | payer OTHER, SELFPAY ==
[2022-03-27 08:50] VITALS: BMI 25.7
[2022-03-27 08:52] VITALS: BP 131/79; PULSE 69; RESP 14; TEMP 36.6; O2SAT 98
[2022-03-27] MEDS: diphenhydrAMINE HCL 50 MG/ML VIAL IVPUSH (11:48)
[2022-03-27] MEDS: methylPREDNISolone Sod Succ 125 MG/2 ML VIAL IVPUSH (11:48)
[2022-03-27] MEDS: Famotidine/PF 20 MG/2 ML VIAL IVPUSH (11:48)
[2022-03-27 12:44] LABS: Syphilis Screen Nonreactive (Nonreactive)
--- NOTE | 2022-03-27 13:04 | ED_ITS ---
HPI - Allergic Reaction General Chief complaint: Allergic Reaction Stated complaint: hives from head to toe, sob Time Seen by Provider: 03/27/22 09:35 Source: patient Mode of arrival: ambulatory History of Present Illness HPI narrative: 61-year-old male with past medical history of GERD, urticaria, presenting to the ED complaining of generalized hives x couple days, seen at urgent care & started Prednisone and Pepcid yesterday. Reports hives worsened today, did not take p.o. prednisone this morning. Reports diffuse pruritus. Admits to similar symptoms over the past few years intermittently, unable to identify source. Denies throat swelling/itching, cough, SOB, new exposures/lotions/detergents, insect bites, travel. MD complaint: allergic reaction and hives Onset (ago): day(s) Related Data Home Medications Medication Instructions Recorded Confirmed levocetirizine 5 mg tablet 5 mg PO DAILY 10/29/21 01/15/22 pantoprazole 40 mg tablet,delayed 40 mg PO DAILY 10/29/21 01/15/22 release Previous Rx's Medication Instructions Recorded docusate sodium 100 mg capsule 100 mg PO DAILY 90 days #90 caps 10/25/20 (Colace) epinephrine 0.3 mg/0.3 mL 0.3 mg (0.3 mL) IM Q10M PRN 02/19/21 injection, auto-injector (EpiPen anaphylaxis #2 ea 2-Sukhdeep) lactulose 20 gram/30 mL oral 20 g (30 mL) PO BID PRN laxative 10/29/21 solution effect 30 days #1,500 mL magnesium hydroxide 400 mg/5 mL 2,400 mg (30 mL) PO DAILY PRN 11/05/21 oral suspension (Milk of Magnesia) constipation 7 days #355 mL metoclopramide HCl 5 mg tablet 5 mg PO TID 15 days #45 tabs 11/20/21 (Reglan) prednisone 20 mg tablet 20 mg PO BID #4 tabs 01/20/22 prednisone 20 mg tablet 40 mg PO DAILY 5 days #10 tabs 03/25/22 Allergies Allergy/AdvReac Type Severity Reaction Status Date / Time No Known Allergies Allergy Verified 03/27/22 08:49 [No Known Allergies*] Review of Systems Review of Systems: Constitutional: No Fever, No Chills ENT/Mouth: No Ear Pain, No Nasal Congestion, No Sinus Pain, No Hoarseness, No sore throat, No Rhinorrhea, No Swallowing Difficulty Cardiovascular: No Chest Pain, No SOB Respiratory: No Cough, No Sputum, No Wheezing Gastrointestinal: No Nausea, No Vomiting, No Diarrhea, No Constipation, No Abdominal pain Genitourinary: No Dysuria, No Urinary Frequency, No Hematuria, No Urinary Incontinence/retention, No Urgency, No Flank Pain Musculoskeletal: No joint pain, No Myalgias, No Joint Swelling Skin: No Skin Lesions, + rash Neuro: No Weakness, No Numbness, No Paresthesias Yes all other systems are reviewed and are negative Constitutional: Constitutional: Reports as per [facility] Past Medical History Attestation statement: The following information was validated with the patient. Medical History Allergic reaction COVID-19 vaccine series completed GERD (gastroesophageal reflux disease) Surgical History H/O colonoscopy History of esophagogastroduodenoscopy (EGD) History of right knee surgery Hx of hernia repair Family History Family History Father In good health Mother In good health Social History Social History Housing: House Alcohol intake: current Alcohol intake frequency: a few times a month Patient Tobacco Use Status: Never used Tobacco Advance Directives: No Advance Directives Information Provided: Yes Current occupational status: employed Current occupation: [employer] Physical Exam ED Vital Signs: Vital Signs - 24 hr 03/27/22 08:52 Temperature 97.9 F Pulse Rate 69 Respiratory Rate 14 Blood Pressure 131/79 Pulse Oximetry 98 Oxygen Delivery Method Room Air BMI result Body Mass Index 25.7 Const General: cooperative, healthy appearing and no acute distress Orientation/consciousness: patient oriented x3 Limitations: no limitations HENMT Head: Yes normal to inspection and Yes atraumatic Ears: hearing grossly normal bilaterally General nose exam: Normal external nose present Face and sinus: Yes normal facial exam Throat: Yes posterior oropharynx normal, Yes tonsils normal, Yes uvula midline, No peritonsillar mass, No uvula laterally displaced and No uvular edema Eyes General: appearance normal, both eyes and all related structures EOM: EOMs intact bilaterally Neck Neck: Yes normal visual inspection and Yes no meningeal signs Resp Effort & Inspection: normal respiratory effort, no audible wheezes, no grunting, not labored, no respiratory distress and no stridor Auscultation: clear to auscultation bilaterally, no crackles, no rales and no rhonchi Cardio Rate: regular rate Heart sounds: S1 normal heart sound present and S2 normal heart sound present GI Inspection: Yes normal to inspection Palpation (GI): Soft to palpation, nontender, no guarding and not rigid Skin Other: + diffuse hives noted over chest, back, bilateral upper and lower extremities coalescing. Blanchable. No papules/vesicles. No mucous membrane involvement. No palm or sole involvement Wounds: no wounds Neuro General: patient oriented x3, tone normal and no meningeal signs Gait exam (Neuro): Normal gait present Extrem General: Yes normal to inspection Course Course Course Narrative: -1304--on re-evaluation patient reports symptomatic improvement, hives with much improvement, still faintly present, continue to deny SOB, cough, wheezing, oral swelling MDM - Allergic Reaction MDM Narrative Medical decision making narrative: 61-year-old male with past medical history of GERD, urticaria, presenting to the ED complaining of generalized hives x couple days, seen at urgent care & started Prednisone and Pepcid yesterday. On exam vital signs stable, NAD, nontoxic appearing, talking in complete sentences, in no respiratory distress, lungs CTA. Diffuse urticaria noted. No evidence of cellulitis. Concern for urticaria/allergic reaction vs possible tick-borne illness or syphilis although of lower concern due to chronicity of symptoms. No skin sloughing Plan: Lyme titer, tick-borne disease, syphilis, IV Solu-Medrol, IV Pepcid, IV Benadryl, re-evaluate Differential Diagnosis Differential diagnosis: Likely allergic reaction, viral enanthem and urticaria Medical Records Attestation: I reviewed the patient's medical records. Lab Data Attestation: I reviewed the patient's lab results. Labs: Lab Results 03/27/22 Range/Units 11:46 T.pallidum Ab (EIA) Nonreactive (Nonreactive) Critical Care Time Critical Care Time Critical Care Time: Yes Total Critical Care Time: 35 Attestation: I have personally provided critical care time exclusive of time spent on separately billable procedures. Time includes review of lab data, radiology results, discussion with consultants, and monitoring for potential decompensation. Intervention performed as documented. Discharge Plan Discharge Clinical Impression: Urticaria Patient Disposition: Home, Self-Care Instructions: Urticaria (ED) Additional Instructions: Continue taking previously prescribed prednisone and Pepcid. In addition take Benadryl as needed. Your Benadryl makes you drowsy. During the day to take Zyrtec or Claritin. Please follow-up with dermatology or an meter attendant. If symptoms persist you develop any shortness of breath, wheezing throat swelling or cough is return to the emergency department Prescriptions: No Action magnesium hydroxide [Milk of Magnesia] 400 mg/5 mL suspension 2,400 mg PO DAILY PRN (Reason: constipation) 7 Days Qty: 355 0RF metoclopramide HCl [Reglan] 5 mg tablet 5 mg PO TID 15 Days Qty: 45 0RF epinephrine [EpiPen 2-Sukhdeep] 0.3 mg/0.3 mL auto-injector 0.3 mg IM Q10M PRN (Reason: anaphylaxis) Qty: 2 0RF Rx Instructions: for 2 doses prednisone 20 mg tablet 20 mg PO BID Qty: 4 0RF pantoprazole 40 mg tablet,delayed release (DR/EC) 40 mg PO DAILY levocetirizine 5 mg tablet 5 mg PO DAILY lactulose 20 gram/30 mL solution 20 g PO BID PRN (Reason: laxative effect) 30 Days Qty: 1500 0RF docusate sodium [Colace] 100 mg capsule 100 mg PO DAILY 90 Days Qty: 90 1RF prednisone 20 mg tablet 40 mg PO DAILY 5 Days Qty: 10 0RF Referrals: Eran Edwards MD [Physician] - Brian Mclain MD [Physician] - Kwaku Ruiz MD [Physician] - Thelma Ivory PAPattiC [Physician Air Traffic Coordinator] - Kareem Cotton [Physician] - Gómez Mendez MD [Physician] - Interventions: ED Discharge Assessment Last Done: 03/27/22 13:20 Discharge Date/Time: 03/27/22 13:21
[2022-03-28 21:21] LABS: Lyme Abs Screen <0.90 index
[2022-03-29 13:17] LABS: A. Phagocytphilium DNA,RT-PCR NOT DETECTED (NOT DETECTED); Babesia Microti DNA, RT-PCR NOT DETECTED (NOT DETECTED); Borrelia Miyamotoi,DNA RT-PCR NOT DETECTED (NOT DETECTED); E.Chaffeensis DNA RT-PCR NOT DETECTED (NOT DETECTED); Lyme(Borrelia ssp)DNA RT-PCR NOT DETECTED (NOT DETECTED)
[2022-03-30 06:56] LABS: Source-Tick borne disease BLOOD
== END 2022-03-27 13:21 | disposition home or self-care (01) ==
PROVIDERS: Physician Assistant; Emergency Provider Emergency Medicine Emergency Medical Services; PCP Physician Assistant
DX: L50.0 Allergic urticaria (principal); Z20.822 Contact with and (suspected) exposure to COVID-19; Z79.899 Other long term (current) drug therapy
CPT/HCPCS: 36415; 86617; 86618; 86780; 87798; 87801; 96374; 96375; 99283; 99284; J1200; J2930

== ENCOUNTER 2022-03-29 15:59 | Outpatient (REF) | payer OTHER, SELFPAY ==
--- NOTE | ~2022-03-29 | XR_ITS ---
EXAMINATION: XR RIBS, RIGHT CLINICAL INFORMATION: Right-sided pain COMPARISON: None TECHNIQUE: 3 views of the right ribs were obtained. FINDINGS: No fracture or destructive process. Lungs clear. Heart and pulmonary vessels are normal. No pneumothorax. Incidental note is made of degenerative change in the right AC joint. XR/XR ribs RT min 3V w CXR1V IMPRESSION: Unremarkable exam.
== END 2022-03-29 16:00 | disposition home or self-care (01) ==
LOC: HO.HMGCX 15:59
PROVIDERS: PCP Physician Assistant
DX: R52 Pain, unspecified (principal)
CPT/HCPCS: 71101

== ENCOUNTER 2022-05-15 09:18 | Outpatient (REF) | payer OTHER, SELFPAY ==
[2022-05-15 09:43] LABS: Hematocrit 46.6 % (42.0-52.0); Hemoglobin 15.2 g/dl (14.0-18.0); Mean Corpuscular HGB Conc 32.6 g/dl (31.0-36.0); Mean Corpuscular Hemoglobin 31.1 pg (27.0-33.0); Mean Corpuscular Volume 95.3 fL (80.0-98.0); Mean Platelet Volume 12.1 fL (9.4-12.4); Platelet Count 169 X10*3/uL (160-400); Red Blood Count 4.89 X10*6/uL (4.60-5.80); Red Cell Distribution Width 13.5 % (11.0-16.0)
[2022-05-15 10:14] LABS: Alanine Aminotransferase 16 U/L (0-40); Albumin Level 4.2 g/dL (3.5-5.0); Alkaline Phosphatase 88 U/L (39-117); Anion Gap 13 (12-20); Aspartate Amino Transferase 17 U/L (5-37); Bilirubin Total 0.9 mg/dL (0.0-1.0); Blood Urea Nitrogen 12 mg/dL (9-16); Calcium 9.7 mg/dL (8.4-10.2); Carbon Dioxide 29 mmol/L (22-29); Chloride 106 mmol/L (96-108); Estimated Glomerular Filt Rate > 60; Glucose Fasting 61 mg/dL (60-99); Potassium 4.9 mmol/L (3.3-5.1); Sodium 143 mmol/L (135-145); Total Protein 6.7 g/dL (6.5-8.0)
[2022-05-15 10:37] LABS: TSH reflex Free T4 0.71 uIU/mL (0.32-4.0)
== END 2022-05-15 09:19 | disposition home or self-care (01) ==
LOC: HO.LAB 09:18
PROVIDERS: PCP Physician Assistant; Visit Provider Physician Assistant
DX: Z13.1 Encounter for screening for diabetes mellitus (principal); J30.9 Allergic rhinitis, unspecified; L50.8 Other urticaria
CPT/HCPCS: 36415; 80053; 82785; 84443; 85027; 86003

== ENCOUNTER 2022-12-26 08:08 | Outpatient (REF) | payer OTHER, SELFPAY ==
[2022-12-26 08:49] LABS: Hematocrit 47.1 % (42.0-52.0); Hemoglobin 15.5 g/dl (14.0-18.0); Mean Corpuscular HGB Conc 32.9 g/dl (31.0-36.0); Mean Corpuscular Hemoglobin 30.9 pg (27.0-33.0); Mean Platelet Volume 12.4 fL (9.4-12.4); Platelet Count 154 X10*3/uL (160-400); Red Blood Count 5.01 X10*6/uL (4.60-5.80); Red Cell Distribution Width 13.4 % (11.0-16.0)
[2022-12-26 09:21] LABS: Alanine Aminotransferase 17 U/L (0-40); Albumin Level 4.1 g/dL (3.5-5.0); Alkaline Phosphatase 94 U/L (39-117); Anion Gap 11 (12-20); Aspartate Amino Transferase 16 U/L (5-37); Bilirubin Total 0.7 mg/dL (0.0-1.0); Blood Urea Nitrogen 11 mg/dL (9-16); Calcium 9.5 mg/dL (8.4-10.2); Carbon Dioxide 27 mmol/L (22-29); Chloride 107 mmol/L (96-108); Estimated Glomerular Filt Rate > 60; Glucose Fasting 98 mg/dL (60-99); Potassium 4.1 mmol/L (3.3-5.1); Sodium 141 mmol/L (135-145); Total Protein 6.6 g/dL (6.5-8.0)
[2022-12-31 22:43] LABS: Transglutaminase Ab IgG <1.0 U/mL; Transglutaminase IgA <1.0 U/mL
== END 2022-12-26 08:09 | disposition home or self-care (01) ==
LOC: HO.LAB 08:08
PROVIDERS: PCP Physician Assistant; Visit Provider Physician Assistant
DX: Z13.1 Encounter for screening for diabetes mellitus (principal); L50.8 Other urticaria; R14.0 Abdominal distension (gaseous)
CPT/HCPCS: 36415; 80053; 85027; 86364

== ENCOUNTER 2023-06-12 09:21 | Outpatient (REF) | payer OTHER, SELFPAY ==
--- NOTE | ~2023-06-12 | XR_ITS ---
EXAMINATION: XR ABDOMEN COMPLETE CLINICAL INDICATION: Abdominal pain, constipation, gaseous abdominal distention COMPARISON: CT abdomen and pelvis 12/23/2019. X-ray abdomen 05/25/2018. TECHNIQUE: 5 views of the abdomen of the abdomen. FINDINGS: Moderate to large amount of stool in the colon. Small amount of gas scattered throughout the colon with scattered air-fluid levels. Degenerative changes in the lumbar spine and bilateral hips. Degenerative changes in the imaged lower thoracic spine. Multiple rounded pelvic calcifications are likely vascular. XR/XR abdomen 3V IMPRESSION: Moderate to large amount of stool in the colon. Small amount of gas scattered throughout the colon with scattered air-fluid levels.
== END 2023-06-12 09:22 | disposition home or self-care (01) ==
LOC: HO.XRAY 09:21
PROVIDERS: PCP Physician Assistant; Visit Provider Physician Assistant
DX: Z11.2 Encounter for screening for other bacterial diseases (principal); R14.0 Abdominal distension (gaseous)
CPT/HCPCS: 74021; 87338

== ENCOUNTER 2023-12-15 13:11 | Outpatient (AMB) | payer OTHER, SELFPAY ==
--- NOTE | 2023-12-15 13:15 | A.OFFPC_ITS ---
Vital Signs 12/15/23 13:24 Height 6 ft 1 in Weight 187 lb 6 oz BMI 24.7 BP 102/70 Blood Pressure Location Lt brachial Position Sitting Pulse 75 Pulse Source Pulse Oximeter Oxygen Delivery Method Room Air Intake Visit Reasons: PE Intake Note: Patient is here today for a physical. 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 by: Self / Same As Patient Allergies No Known Allergies [No Known Allergies*] Allergy (Verified 12/15/23 13:58) Medication List - Last Reconciled 12/15/23 by Jorge Montejo PA-C cetirizine 10 mg PO DAILY 90 days cyclobenzaprine 5 mg PO BEDTIME 14 days epinephrine (EpiPen 2-Sukhdeep) 0.3 mg (0.3 mL) IM Q10M PRN famotidine 20 mg PO BEDTIME fluticasone propionate 50 mcg/actuation (Flonase Allergy Relief) 1 spray intranasal BID 30 days lactulose 20 grams (30 mL) PO BID PRN 20 days prednisone 50 mg PO ONCE PRN Tobacco use date assessed: 12/15/23 Dental Screening Dental Screen Date: 12/15/23 Did you have a dental visit in the last 12 months?: Yes Did you have a dental problem in the last 6 months where you did not have access to dental care?: No Was dental information given to patient?: Patient has dentist HPI PE HPI Details Patient is a 62-year-old male here today for annual physical.? Patient has a past medical history significant for gastric reflux, idiopathic uticaria. .. Idiopathic Urticaria:? ? At this time it is still unclear what has caused him these allergic reactions. Has not had any outbreaks in over last year. Continues on antihistamine daily. Did have RAST panel which did show some moderate level IgE to wheat .. Colonoscopy: Followed by Dr. Lange colonoscopy done 2021 polyps found repeat 3-5 years Vaccines: Up-to-date with tetanus vaccine, up-to-date with COVID vaccine, Did not have Chicken pox.. PFSH Medical History COVID-19 vaccine series completed GERD (gastroesophageal reflux disease) Allergic reaction Surgical History History of esophagogastroduodenoscopy (EGD) Hx of hernia repair H/O colonoscopy History of right knee surgery Family History Father In good health Mother In good health Social History Housing: House Alcohol intake: current Alcohol intake frequency: a few times a month Patient Tobacco Use Status: Never used Tobacco e-Cigarette/Vaping Use: Never Used Second Hand Smoke Exposure: No service: No Current occupational status: employed Current occupation: [employer] Cognitive needs: No Hearing needs: No Vision needs: Yes Questionnaire PHQ-9 Over the last 2 weeks, how often have you been bothered by any of the following problems? 1. Little interest or pleasure in doing things: not at all 2. Feeling down, depressed, or hopeless: not at all 3. Trouble falling or staying asleep, or sleeping too much: not at all 4. Feeling tired or having little energy: not at all 5. Poor appetite or overeating: not at all 6. Feeling bad about yourself - or that you are a failure or have let yourself or your family down: not at all 7. Trouble concentrating on things, such as reading the newspaper or watching television: not at all 8. Moving or speaking so slowly that other people could have noticed. Or the opposite - being so fidgety or restless that you have been moving around a lot more than usual: not at all 9. Thoughts that you would be better off or of hurting yourself in some way: not at all Total score: 0 Depression Screening Interpretation: Negative Depression Screening Done: Yes 58344 - PHQ-9 Billing: Yes Source: Developed by Drs. Travis Holland, Myah Hermosillo, Octavio Gonzalez and colleagues, with an educational kalie from [employer]. Thrive Questionnaire Date Thrive assessed: 12/15/23 I am a: Patient What is your living situation today?: I have a steady place to live Within the past 12 months, did the food you bought not last and you didn't have the money to get more?: Never true Within the past 12 months, did you worry whether your food would run out before you got money to buy more?: Never true Do you have trouble paying for medicines?: No Do you have trouble getting transportation to medical appointments?: No Do you have trouble paying your heating and electricity bill?: No Do you have trouble taking care of your child, family member or friend?: No Do you have trouble with day-to-day activities such as bathing, preparing meals, shopping, managing finances, etc.?: No Are you currently unemployed and looking for a job?: No Are you interested in more education?: No Please select the resources that you would like help with: None Currently or been in a relationship where the following occur: no concerns reported THRIVE Score: 0 AUDIT C Alcohol Use Questionnaire (AUDIT-C) 1. How often do you have a drink containing alcohol?: Never 2. How many drinks containing alcohol do you have on a typical day when you are drinking?: 1 or 2 3. How often do you have six or more drinks on one occasion?: Never Total Score: 0 EMEKA-7 AMB Questionnaire EMEKA-7 Date EMEKA - 7 assessed: 12/15/23 Feeling nervous, anxious, or on edge: 0 = Not at all Not being able to stop or control worryin = Not at all Worrying too much about different things: 0 = Not at all Trouble relaxin = Not at all Being so restless that it is hard to sit still: 0 = Not at all Becoming easily annoyed or irritable: 0 = Not at all Feeling afraid as if something awful might happen: 0 = Not at all Total EMEKA-7 score (0-4 normal; 5-9 mild; 10-14 moderate; 15-21 severe): 0 Source: Developed by Drs. Travis Holland, Myah Hermosillo, Octavio Gonzalez and colleagues, with an educational kalie from [employer]. EMEKA-7 Assessment Billing EMEKA-7 Assessment Tool: EMEKA-7 Assessment 49268 Review of Systems Const Denies body aches, Denies chills, Denies excessive sweating, Denies fatigue, Denies fever(s) and Denies headache(s) Eyes Denies blurry vision ENT Denies dysphagia, Denies vertigo, Denies dizziness, Denies headache(s), Denies hearing loss and Denies tinnitus Card Denies chest pain, Denies chest pain with activity, Denies syncope, Denies irregular heart rhythm and Denies dyspnea Resp Denies chest congestion, Denies cough, Denies hemoptysis, Denies dyspnea and Denies wheezing GI Reports abdominal pain, Denies melena, Denies hematochezia, Denies coffee ground emesis, Reports constipation, Denies dysphagia, Denies diarrhea, Denies nausea and Denies vomiting Denies difficulty urinating, Denies dysuria, Denies urinary frequency, Denies urinary hesitancy and Denies urinary urgency Musc Denies arthralgias, Denies limited range of motion, Denies muscle cramps and Denies muscle weakness Skin/Breast Denies rash and Denies skin ulcer Neuro Denies Abnormal speech present, Denies confusion, Denies vertigo, Denies dizziness, Denies syncope, Denies headache(s), Denies memory loss and Denies seizure-like activity Psych Denies anxiety, Denies confusion, Denies depression, Denies memory loss, Denies panic attacks and Denies paranoia Endo Denies excessive sweating, Denies fatigue, Denies flushing, Denies polydipsia and Denies polyuria Aller/Immun Denies wheezing Physical exam (Primary Care) Vital Signs: Last Vital Signs Pulse 75 12/15/23 13:24 BP 102/70 12/15/23 13:24 Oxygen Delivery Method Room Air 12/15/23 13:24 BMI result Body Mass Index 24.7 Tobacco/Smoking Status: Tobacco use Status Tobacco use date assessed 12/15/23 12/15/23 13:32 Patient Tobacco Use Status Never used Tobacco 12/15/23 13:15 e-Cigarette/Vaping Use Never Used 12/15/23 13:15 PHQ-9: PHQ-9 Score PHQ-9: Total score 0 12/15/23 13:32 Depression Screening Interpretation: Negative Thrive Assessment: Date of Thrive Assessment Date Thrive assessed 12/15/23 12/15/23 13:32 Currently or been in a relationship where the following occur: no concerns reported Const General: cooperative, comfortable, no acute distress, alert and awake; No confusion Orientation/consciousness: oriented to person, oriented to place, patient oriented x3 and No confusion HENMT Head: Yes normocephalic Ears: external ears normal and TM's normal bilaterally Face and sinus: No sinus tenderness Mouth: Normal oral and palatal mucosa present and tongue normal Teeth and gingiva: dentition normal and gingiva normal Throat: Yes posterior oropharynx normal, Yes tonsils normal and Yes uvula midline Eyes Conjunctivae: conjunctivae normal Sclerae: sclerae normal Pupils: Equal, round and reactive pupils present EOM: EOMs intact bilaterally Direct Ophthalmoscopy: No no photophobia Neck Neck: Yes no lymphadenopathy, No tender and Yes no JVD Thyroid: Thyroid normal Carotids: no bruits Chest Chest palpation & inspection: no tenderness Resp Effort & Inspection: normal respiratory effort, no audible wheezes, not labored and no stridor Auscultation: no crackles, no rales, no rhonchi and no wheezes Cardio Jugular venous distension: no JVD Rate: regular rate, not bradycardic and not tachycardic Rhythm: regular rhythm Bruits: no carotid bruits Peripheral pulses: Peripheral pulses 2+ throughout GI Inspection: Yes normal to inspection, No abdominal wall ecchymosis and No visible herniation Palpation (GI): Soft to palpation, nontender, no guarding, not rigid and No hepatosplenomegaly present Auscultation: normoactive bowel sounds General: Yes no CVA tenderness Back/Spine/Pelvis Back: no CVA tenderness and No back tenderness Cervical Spine: cervical ROM normal Thoracic/Lumbar Spine: thoracic and lumbar spine normal to inspection, straight leg raise negative bilaterally, No thoraco-lumbar ROM limited and No lumbar spinal tenderness Skin Lesions: no lesions Rashes: no rashes Wounds: no wounds Neuro General: oriented to person, oriented to place, patient oriented x3, CN's II-XI intact bilaterally and No confusion Cranial nerves: Yes Equal, round and reactive pupils present and Yes Normal accommodation reflex present Cognition (Neuro): normal cognition Speech: No Abnormal speech present Gait exam (Neuro): Normal gait present Motor exam (neuro): 5/5 motor strength present throughout Extrem Right upper extremity: full ROM; no cyanosis Left upper extremity: full ROM; no cyanosis Right lower extremity: no edema Left lower extremity: no edema Psych Appearance: grossly normal Mental Status: mental status grossly normal Affect: normal affect Attitude: cooperative Thought process: Normal thought process present Assessment and Plan Assessment & Plan (1) Annual physical exam: Code(s): Z00.00 - Encounter for general adult medical examination without abnormal findings (2) Acute urticaria: Code(s): L50.8 - Other urticaria Plan: Has been resolving over the last year.. Has not had to use any prednisone over epinephrine. Has followed up with Dermatology who has given him creams though does not have a formal diagnosis. Of note did have moderate RAST panel IgE levels to wheat (3) GERD (gastroesophageal reflux disease): Code(s): K21.9 - Gastro-esophageal reflux disease without esophagitis Qualifiers: Esophagitis presence: without esophagitis Qualified Code(s): K21.9 - Gastro-esophageal reflux disease without esophagitis Plan: Reflux has been good as of late with the medications. (4) Constipation: Code(s): K59.00 - Constipation, unspecified Qualifiers: Constipation type: unspecified constipation type Qualified Code(s): K59.00 - Constipation, unspecified Plan: Constipation continues to be a chronic issue. Does use stool softener quite regularly. Has had colonoscopy is without major findings besides polyp. Does report gas pains at times. Does admit to not getting enough fiber in his diet. Has increased his fluid intake and reports constipation has been somewhat better. Orders: Orders Complete Blood Count no Diff Today K21.9 - Gastro-esophageal reflux disease without esophagitis Prostate Specific Antigen Scr Today Z12.5 - Encounter for screening for malignant neoplasm of prostate, Z13.1 - Encounter for screening for diabetes mellitus Comprehensive [place]. Panel Fast Today Z13.1 - Encounter for screening for diabetes mellitus Medications: Changed From prednisone 50 mg PO DAILY 6 days 6 tabs 0RF L50.8 - Other urticaria To prednisone 50 mg PO ONCE PRN L50.8 - Other urticaria Refilled cetirizine 10 mg PO DAILY 90 days 90 tabs 3RF allergy symptoms J30.1 - Allergic rhinitis due to pollen epinephrine (EpiPen 2-Sukhdeep) for 2 doses 0.3 mg (0.3 mL) IM Q10M PRN 2 ea 0RF anaphylaxis fluticasone propionate 50 mcg/actuation (Flonase Allergy Relief) administer into each nostril 1 spray intranasal BID 30 days 16 grams 1RF J30.9 - Allergic rhinitis, unspecified Patient Instructions: Goals: Control episodes of urticaria and abdominal discomfort Barriers: Getting enough fiber in diet Coding Level of Care Code Est Pt Prev Care 40-64y(92408) Diagnoses Annual physical exam Z00.00 Acute urticaria L50.8 Gastroesophageal reflux disease without esophagitis K21.9 Esophagitis presence: without esophagitis Constipation, unspecified constipation type K59.00 Constipation type: unspecified constipation type Additional Codes EMEKA-7 Assessment Billing - EMEKA-7 Assessment Tool: EMEKA-7 Assessment 94014 ([id number])
[2023-12-15 13:24] VITALS: BP 102/70; PULSE 75; BMI 24.7
== END 2023-12-15 14:11 | disposition home or self-care (01) ==
LOC: HO.HMGH 13:14
PROVIDERS: PCP Physician Assistant; Visit Provider Physician Assistant
DX: Z00.00 Encounter for general adult medical examination without abnormal findings (principal); L50.8 Other urticaria; K21.9 Gastro-esophageal reflux disease without esophagitis; K59.00 Constipation, unspecified
CPT/HCPCS: 99396

== ENCOUNTER 2024-01-20 07:57 | Outpatient (REF) | payer OTHER, SELFPAY ==
[2024-01-20 08:35] LABS: Hematocrit 44.8 % (42.0-52.0); Mean Corpuscular HGB Conc 33.5 g/dl (31.0-36.0); Mean Corpuscular Hemoglobin 31.1 pg (27.0-33.0); Mean Corpuscular Volume 92.8 fL (80.0-98.0); Mean Platelet Volume 12.1 fL (9.4-12.4); Platelet Count 143 X10*3/uL (160-400); Red Blood Count 4.83 X10*6/uL (4.60-5.80); Red Cell Distribution Width 13.8 % (11.0-16.0); White Blood Count 4.2 X10*3/uL (4.8-10.8)
[2024-01-20 09:19] LABS: Alanine Aminotransferase 20 U/L (0-40); Alkaline Phosphatase 93 U/L (39-117); Anion Gap 10 (12-20); Aspartate Amino Transferase 21 U/L (5-37); Blood Urea Nitrogen 12 mg/dL (9-16); Calcium 9.2 mg/dL (8.4-10.2); Carbon Dioxide 28 mmol/L (22-29); Chloride 109 mmol/L (96-108); Estimated Glomerular Filt Rate > 60; Glucose Fasting 96 mg/dL (60-99); Potassium 4.3 mmol/L (3.3-5.1); Sodium 143 mmol/L (135-145); Total Protein 6.7 g/dL (6.5-8.0)
[2024-01-20 09:41] LABS: Prostate Specific Antigen Scr 0.87 ng/mL (<0.05-4.0)
== END 2024-01-20 07:58 | disposition home or self-care (01) ==
LOC: HO.LAB 07:57
PROVIDERS: PCP Physician Assistant; Visit Provider Physician Assistant
DX: Z13.1 Encounter for screening for diabetes mellitus (principal); Z12.5 Encounter for screening for malignant neoplasm of prostate; K21.9 Gastro-esophageal reflux disease without esophagitis
CPT/HCPCS: 36415; 80053; 84153; 85027

== ENCOUNTER 2024-05-27 08:08 | Outpatient (AMB) | payer OTHER, SELFPAY ==
--- NOTE | 2024-05-27 08:46 | AM.OFFWIN_ITS ---
Intake Vital Signs 05/27/24 08:47 Height 6 ft 1 in Weight 189 lb BMI 24.9 BP 114/70 Blood Pressure Location Rt brachial Position Sitting Pulse 64 Pulse Source Pulse Oximeter Pulse Oximetry (%) 100 Oxygen Delivery Method Room Air Intake Visit Reasons: EP bump on the back of neck Intake Note: Patient here for bump on back of head that is sore that has been present for about 2 weeks Patient Tobacco Use Status: Never used Tobacco Allergies No Known Allergies [No Known Allergies*] Allergy (Verified 05/27/24 08:48) Do you need a note to return to daycare/school/sports/work: No HPI HPI Comments 2 History of Present Illness Details Patient is a 64-year-old male complaining of a lump on the back of his neck. He states it has been there for about 2 weeks and at 1 point it was draining fluid but it stopped and now it is rover tender and hard. He has not done anything specific to try to make it better and nothing seems to make it worse. Patient denies a history of MRSA infections. [facility] Medical History COVID-19 vaccine series completed GERD (gastroesophageal reflux disease) Allergic reaction Surgical History History of esophagogastroduodenoscopy (EGD) Hx of hernia repair H/O colonoscopy History of right knee surgery Family History Father In good health Mother In good health Social History Housing: House Alcohol intake: current Alcohol intake frequency: a few times a month Patient Tobacco Use Status: Never used Tobacco e-Cigarette/Vaping Use: Never Used Second Hand Smoke Exposure: No service: No Current occupational status: employed Current occupation: [employer] Cognitive needs: No Hearing needs: No Vision needs: Yes Review of Systems Const All systems reviewed & are unremarkable except as noted in HPI and below Physical Exam Vital Signs: Last Vital Signs Pulse 54 05/27/24 08:47 BP 114/70 05/27/24 08:47 Pulse Ox 100 05/27/24 08:47 Oxygen Delivery Method Room Air 05/27/24 08:47 BMI result Body Mass Index 24.9 Const General: cooperative, healthy appearing, comfortable, no acute distress and well developed Orientation/consciousness: patient oriented x3 Limitations: no limitations HEENT Head: Yes normal to inspection Neck Neck: Yes normal visual inspection and Yes supple Skin Other: Back of the neck, patient has a 1 cm round, erythematous and indurated tender area. No drainage noted, not fluctuant, Neuro General: patient oriented x3 Assessment & Plan Assessment & Plan (1) Abscess: Code(s): L02.91 - Cutaneous abscess, unspecified Plan: Sent cefuroxime to pharmacy, did advise if it does not improve, we may need to add doxycycline but as he has no history of MRSA, I will not add it right now. Plan See above Medications: New cefuroxime axetil 500 mg PO Q12H 10 tabs 0RF Coding Level of Care Code Est Pt Level 3 (15507) Diagnoses Abscess L02.91
[2024-05-27 08:47] VITALS: BP 114/70; PULSE 64; O2SAT 100; BMI 24.9
== END 2024-05-27 09:22 | disposition home or self-care (01) ==
PROVIDERS: PCP Physician Assistant; Visit Provider Physician Assistant
DX: L02.91 Cutaneous abscess, unspecified (principal)

== ENCOUNTER → 2024-05-27 08:08 | Outpatient (BNVA) | payer OTHER, SELFPAY | PROVIDERS: PCP Physician Assistant ==

== ENCOUNTER 2024-06-04 08:16 | Outpatient (AMB) | payer OTHER, SELFPAY ==
[2024-06-04 08:32] VITALS: BP 98/60; PULSE 98; TEMP 36.9; O2SAT 96; BMI 24.7
--- NOTE | 2024-06-04 08:32 | AM.OFFWIN_ITS ---
Intake Vital Signs 06/04/24 08:32 Height 6 ft 1 in Weight 187 lb BMI 24.7 BP 98/60 Blood Pressure Location Lt brachial Position Sitting Pulse 98 Pulse Source Pulse Oximeter Temp 98.4 F Temp Source Oral Pulse Oximetry (%) 96 Oxygen Delivery Method Room Air Intake Visit Reasons: EP-behind neck lump Intake Note: Pt is here today c/o lumps in back of neck Patient Tobacco Use Status: Never used Tobacco Allergies No Known Allergies [No Known Allergies*] Allergy (Verified 06/04/24 08:32) HPI HPI Comments History of Present Illness Details This is a 64-year-old male who presented to the walk-in clinic complaining of a persistent lump to the back of his neck. He was seen here on 05/27/2024 and was diagnosed with an abscess. He was sent home on PO cefuroxime 500 mg every 12 hours x 5 days, which he completed 3 days ago. Patient states that the lump to his neck has not improved. He denies any significant fever/chills. He denies any drainage. He does report some stomach upset since completing his antibiotic course. [facility] Medical History COVID-19 vaccine series completed GERD (gastroesophageal reflux disease) Allergic reaction Surgical History History of esophagogastroduodenoscopy (EGD) Hx of hernia repair H/O colonoscopy History of right knee surgery Family History Father In good health Mother In good health Social History Housing: House Alcohol intake: current Alcohol intake frequency: a few times a month Patient Tobacco Use Status: Never used Tobacco e-Cigarette/Vaping Use: Never Used Second Hand Smoke Exposure: No service: No Current occupational status: employed Current occupation: [employer] Cognitive needs: No Hearing needs: No Vision needs: Yes Review of Systems Const All systems reviewed & are unremarkable except as noted in HPI and below Reports no additional complaints Eyes Reports no additional complaints ENT Reports no additional complaints Card Reports no additional complaints Resp Reports no additional complaints GI Reports no additional complaints Reports no additional complaints Musc Reports no additional complaints Skin/Breast Reports system reviewed and no additional complaints, except as documented Neuro Reports no additional complaints Psych Reports no additional complaints Endo Reports no additional complaints Mar[place]/Lymph Reports no additional complaints Aller/Immun Reports no additional complaints Physical Exam Vital Signs: Last Vital Signs Temp 98.4 F 06/04/24 08:32 Pulse 98 06/04/24 08:32 BP 98/60 06/04/24 08:32 Pulse Ox 96 06/04/24 08:32 Oxygen Delivery Method Room Air 06/04/24 08:32 BMI result Body Mass Index 24.7 Const Other: Vital signs reviewed. Constitutional: Non-toxic appearing. No acute distress. Well-developed and well-nourished. HEENT: Normocephalic and atraumatic. Skin: Warm and dry. There is a 1 cm tender nodule to the posterior neck without fluctuance/induration or drainage. Neck: Full and painless range of motion. No cervical lymphadenopathy. Cardio: Regular rate and rhythm. No murmurs, gallops, or rubs. No lower extremity edema. No JVD. Pulmonary: No respiratory distress. No accessory muscle usage. Clear to auscultation bilaterally without wheezing, crackles, or rhonchi. Gastrointestinal: Soft, nontender, and nondistended in all 4 quadrants. Normoactive bowel sounds in all 4 quadrants. Genitourinary: No CVA tenderness. Musculoskeletal: Normal range of motion in joints throughout the body. No deformity or other signs of injury. Neuro: Alert and oriented x4. Cranial nerves 2-12 grossly intact. No focal deficits appreciated. Psych: Normal mood and affect. Assessment & Plan Assessment & Plan (1) Abscess: Code(s): L02.91 - Cutaneous abscess, unspecified Plan This is a 64-year-old male who presented to the walk-in clinic complaining of a persistent abscess to the posterior neck. He was seen here on 05/27/2024 and diagnosed with an abscess and sent home on PO cefuroxime. Patient states he has not noticed any significant improvement. On physical examination, he has a 1 cm firm/tender nodule to the posterior neck without fluctuance/induration and only mild erythema. PO doxycycline 100 mg twice daily added to the antibiotic regimen for possible MRSA coverage. Patient was instructed to take probiotics to help with stomach upset. Patient was instructed to follow-up here for persistent or worsening symptoms. Patient verbalized understanding and is agreeable with the plan. Medications: New doxycycline hyclate 100 mg PO BID 10 caps 0RF Coding Level of Care Code Est Pt Level 3 (17128) Diagnoses Abscess L02.91
== END 2024-06-04 09:13 | disposition home or self-care (01) ==
PROVIDERS: PCP Physician Assistant; Visit Provider Physician Assistant Medical
DX: L02.91 Cutaneous abscess, unspecified (principal)

== ENCOUNTER → 2024-06-04 08:16 | Outpatient (BNVA) | payer OTHER, SELFPAY | PROVIDERS: PCP Physician Assistant; Visit Provider Physician Assistant Medical ==

== ENCOUNTER 2024-06-12 09:12 | Outpatient (AMB) | payer OTHER, SELFPAY ==
[2024-06-12 09:39] VITALS: BP 100/70; PULSE 67; TEMP 36.6; O2SAT 100; BMI 24.5
--- NOTE | 2024-06-12 09:39 | AM.OFFWIN_ITS ---
Intake Vital Signs 06/12/24 09:39 Height 6 ft 1 in Weight 186 lb BMI 24.5 BP 100/70 Blood Pressure Location Lt brachial Position Sitting Pulse 67 Pulse Source Pulse Oximeter Temp 97.8 F Temp Source Oral Pulse Oximetry (%) 100 Oxygen Delivery Method Room Air Intake Visit Reasons: EP-Rt leg pain & swollen Intake Note: Pt is here today c/o Rt leg pain and swollen Patient Tobacco Use Status: Never used Tobacco Allergies No Known Allergies [No Known Allergies*] Allergy (Verified 06/04/24 08:32) HPI HPI Comments History of Present Illness Details He presents to office with complaint of constipation and R ankle/foot swelling He was seen 05/27 and 06/04 for an abscess to back of neck Started on cefurxime on 05/27 and discontinued and was started on doxycycline on 06/04. Has a few more days States abscess is now better and has no complaints about that Said Friday started with R ankle swelling after playing golf Friday and Friday No trauma or injury He said swelling is located in foot, ankle and leg Has some aching to R hip as well No L sided swelling associated States surgery on R leg in the past. No hx of DVT. no recent travel He said slight cramping in abdomen but not leg Ice and rest makes swelling go down Also states constipated This has been an issue in the past; used to take lactulose and needs refill Believes due to antibiotic use Had BM yesterday because he had gone a few days without Still passing gas Staying hydrated without nausea or vomiting Said + slight sweats when he woke up in the morning No fevers He has not tried anything for this [facility] Medical History COVID-19 vaccine series completed GERD (gastroesophageal reflux disease) Allergic reaction Surgical History History of esophagogastroduodenoscopy (EGD) Hx of hernia repair H/O colonoscopy History of right knee surgery Family History Father In good health Mother In good health Social History Housing: House Alcohol intake: current Alcohol intake frequency: a few times a month Patient Tobacco Use Status: Never used Tobacco e-Cigarette/Vaping Use: Never Used Second Hand Smoke Exposure: No service: No Current occupational status: employed Current occupation: [employer] Cognitive needs: No Hearing needs: No Vision needs: Yes Review of Systems Const Denies body aches, Denies chills, Denies fever(s), Denies weakness and Reports other (felt one night of night sweat) Eyes Denies blurry vision ENT Denies dizziness, Denies otalgia, Denies sinus pressure and Denies sore throat Card Denies chest pain, Denies chest pain at rest and Denies lightheadedness Resp Denies cough GI Reports abdominal pain (cramping ), Denies melena, Denies hematochezia, Reports constipation, Denies nausea and Denies vomiting Musc Reports arthralgias (R ankle) and Denies tingling Skin/Breast Denies rash and Reports other (abscess to back of neck healing well) Neuro Denies dizziness, Denies tingling, Denies paresthesias and Denies weakness Physical Exam Vital Signs: Last Vital Signs Temp 97.8 F 06/12/24 09:39 Pulse 67 06/12/24 09:39 BP 100/70 06/12/24 09:39 Pulse Ox 100 06/12/24 09:39 Oxygen Delivery Method Room Air 06/12/24 09:39 BMI result Body Mass Index 24.5 General: Non-toxic, NAD. Speaking full sentences. Skin: Warm dry throughout. RLE has edema noted circumferential around R ankle and minimal to dorsal aspect foot. No edema to calf, tamayo, digits R foot. Warm to to palpation without erythema, petechiae, pallor or coldness Posterior neck has very small slight induration bump central neck without erythema fluctuance or drainage/warmth Eye: EOMI Respiratory: CTA bilaterally. No wheezes, rales or rhonchi Cardiac: RRR. No murmur. DP pulse intact RLE. Abdominal: BS present x 4. No tenderness to light and deep palpation. No rebound or guarding MSK: + tenderness to palpation R lateral malleoli of ankle and dorsal aspect R foot along 1-3 metatarsal bone. No digit ttp R foot. No medial malleoli tenderness. Full ROM extremities. Neurology: A/O x 3. No aphasia or facial droop. Psych: Good mood and affect Assessment & Plan Assessment & Plan (1) Ankle edema: Code(s): M25.473 - Effusion, unspecified ankle Plan: Patient seen and evaluated. No change in management to neck abscess I did not see leg/foot edema as side effect of doxy or cefuroxime Xrays revealed chronic changes per my interpretation; terry read pending Wells score for DVT -2 so no concern at this time for DVT Discussed elevation Given trang for compression rest Lactulose script given for constipation Worsening s/s discussed with pt and when to go to ER F/U with PCP Patient gave verbal understanding and had no additional questions or concerns at time of discharge All questions answered (2) Foot pain, right: Code(s): M79.671 - Pain in right foot Plan: see above Orders: Orders XR ankle RT 2V Today M25.473 - Effusion, unspecified ankle Medications: Refilled lactulose 20 grams (30 mL) PO BID PRN 1,200 mL 0RF laxative effect 20 days K59.00 - Constipation, unspecified Coding Level of Care Code Est Pt Level 3 (32353) Diagnoses Ankle edema M25.473 Foot pain, right M79.671
== END 2024-06-12 10:47 | disposition home or self-care (01) ==
PROVIDERS: PCP Physician Assistant; Visit Provider Physician Assistant
DX: M25.473 Effusion, unspecified ankle (principal); M79.671 Pain in right foot

== ENCOUNTER → 2024-06-12 09:12 | Outpatient (BNVA) | payer OTHER, SELFPAY | PROVIDERS: PCP Physician Assistant ==

== ENCOUNTER 2024-06-12 09:56 | Outpatient (REF) | payer OTHER, SELFPAY ==
--- NOTE | ~2024-06-12 | XR_ITS ---
EXAMINATION: XR ANKLE, RIGHT. XR FOOT, RIGHT. CLINICAL INFORMATION: Ankle and foot pain COMPARISON: None. TECHNIQUE: 3 views of the right ankle. 3 views of the right foot. FINDINGS: Moderate to severe talocrural osteoarthritis with marked narrowing along the lateral aspect resulting in valgus orientation, as well as degenerative change at the junction of the distal fibula and the lateral process of the talus. Ossified bodies and/or chronic ossifications distal to the fibula and medial malleolus. No acute fracture. Prominent heel spur. Degenerative calcifications within the distal Achilles tendon and plantar fascia origin. Mild 1st MTP joint osteoarthritis. No acute abnormality of the foot. Possible 2nd through 4th hammer toes. XR/XR foot RT min 3V IMPRESSION: 1. Moderate to severe talocrural osteoarthritis. No acute fracture. 2. Prominent heel spur. 3. Degenerative calcifications in the distal Achilles tendon and plantar fascia origin. Electronically signed by: Kareem Cody MD 06/13/2024 09:54 AM EDT
--- NOTE | ~2024-06-12 | XR_ITS ---
EXAMINATION: XR ANKLE, RIGHT. XR FOOT, RIGHT. CLINICAL INFORMATION: Ankle and foot pain COMPARISON: None. TECHNIQUE: 3 views of the right ankle. 3 views of the right foot. FINDINGS: Moderate to severe talocrural osteoarthritis with marked narrowing along the lateral aspect resulting in valgus orientation, as well as degenerative change at the junction of the distal fibula and the lateral process of the talus. Ossified bodies and/or chronic ossifications distal to the fibula and medial malleolus. No acute fracture. Prominent heel spur. Degenerative calcifications within the distal Achilles tendon and plantar fascia origin. Mild 1st MTP joint osteoarthritis. No acute abnormality of the foot. Possible 2nd through 4th hammer toes. XR/XR ankle RT 2V IMPRESSION: 1. Moderate to severe talocrural osteoarthritis. No acute fracture. 2. Prominent heel spur. 3. Degenerative calcifications in the distal Achilles tendon and plantar fascia origin. Electronically signed by: Kareem Cody MD 06/13/2024 09:54 AM EDT
== END 2024-06-12 09:57 | disposition home or self-care (01) ==
LOC: HO.HMGCX 09:56
PROVIDERS: PCP Physician Assistant; Visit Provider Physician Assistant
DX: M79.671 Pain in right foot (principal); M25.471 Effusion, right ankle
CPT/HCPCS: 73600; 73630

== ENCOUNTER 2024-06-17 18:53 | Emergency (ER) | payer OTHER, SELFPAY ==
--- NOTE | ~2024-06-17 | XR_ITS ---
EXAMINATION: RADIOGRAPH LEFT ANKLE AND LEFT FOOT CLINICAL INFORMATION: Swelling and pain. COMPARISON: None available. TECHNIQUE: 3 views of the left ankle and 3 views of the left foot. FINDINGS: No acute fracture or dislocation. Moderate talocrural osteoarthritis as well as moderate degenerative changes at the junction of the distal fibula with the lateral process of the talus. Degenerative calcifications at the insertion site of the plantar facia. Mild degenerative osteoarthritis of the first metatarsophalangeal joint. Diffuse soft tissue swelling, significantly lesser than compared to the contralateral right side. XR/XR foot LT min 3V IMPRESSION: 1. No acute fracture. 2. Multifocal degenerative changes and soft tissue swelling, lesser in severity compared to the right side. Electronically signed by: Daisy Persaud MD 06/17/2024 09:51 PM EDT
--- NOTE | ~2024-06-17 | XR_ITS ---
EXAMINATION: RADIOGRAPH RIGHT ANKLE AND RIGHT FOOT CLINICAL INFORMATION: Swelling and pain. COMPARISON: Radiograph right ankle and right foot 06/12/2024. TECHNIQUE: 3 views of the right ankle and 3 views of the right foot. FINDINGS: No significant change compared to a few days earlier. Severe talocrural osteoarthritis with marked narrowing along the lateral aspect resulting in valgus orientation. Severe degenerative changes at the junction of the fibula and talus. Chronic ossific/calcific densities adjacent to the medial and lateral malleoli. Degenerative calcifications in the region of the distal Achilles tendon and origin of the plantar facia. Unchanged possibly second through fourth hammer toes. Stable diffuse soft tissue swelling more noticeable around the ankle with stable anterior and posterior joint effusions. XR/XR ankle RT min 3V IMPRESSION: No significant change compared to 06/12/2024. Electronically signed by: Daisy Persaud MD 06/17/2024 09:47 PM EDT
--- NOTE | ~2024-06-17 | XR_ITS ---
EXAMINATION: RADIOGRAPH LEFT ANKLE AND LEFT FOOT CLINICAL INFORMATION: Swelling and pain. COMPARISON: None available. TECHNIQUE: 3 views of the left ankle and 3 views of the left foot. FINDINGS: No acute fracture or dislocation. Moderate talocrural osteoarthritis as well as moderate degenerative changes at the junction of the distal fibula with the lateral process of the talus. Degenerative calcifications at the insertion site of the plantar facia. Mild degenerative osteoarthritis of the first metatarsophalangeal joint. Diffuse soft tissue swelling, significantly lesser than compared to the contralateral right side. XR/XR ankle LT min 3V IMPRESSION: 1. No acute fracture. 2. Multifocal degenerative changes and soft tissue swelling, lesser in severity compared to the right side. Electronically signed by: Daisy Persaud MD 06/17/2024 09:51 PM EDT
--- NOTE | ~2024-06-17 | XR_ITS ---
EXAMINATION: RADIOGRAPH RIGHT ANKLE AND RIGHT FOOT CLINICAL INFORMATION: Swelling and pain. COMPARISON: Radiograph right ankle and right foot 06/12/2024. TECHNIQUE: 3 views of the right ankle and 3 views of the right foot. FINDINGS: No significant change compared to a few days earlier. Severe talocrural osteoarthritis with marked narrowing along the lateral aspect resulting in valgus orientation. Severe degenerative changes at the junction of the fibula and talus. Chronic ossific/calcific densities adjacent to the medial and lateral malleoli. Degenerative calcifications in the region of the distal Achilles tendon and origin of the plantar facia. Unchanged possibly second through fourth hammer toes. Stable diffuse soft tissue swelling more noticeable around the ankle with stable anterior and posterior joint effusions. XR/XR foot RT min 3V IMPRESSION: No significant change compared to 06/12/2024. Electronically signed by: Daisy Persaud MD 06/17/2024 09:47 PM EDT
[2024-06-17 19:04] VITALS: BP 120/78; PULSE 107; RESP 18; TEMP 36.9; O2SAT 100; BMI 11.1
--- NOTE | 2024-06-17 19:06 | ED_ITS ---
HPI - General Adult General Chief complaint: Extremity Problem Stated complaint: Bilateral foot pain/swelling Time Seen by Provider: 06/17/24 20:13 Source: patient Mode of arrival: ambulatory Limitations: no limitations History of Present Illness ED Provider: ERMA ESPAÑA PA-C HPI narrative: 64 year old male with no significant pmhx significant for GERD presents to the ED today for evaluation of bilateral foot/ankle pain and swelling x1 week. Reports pain began after playing golf on both Friday and Friday. Describes the pain as dull. Reports pain/ swelling initially began in his right ankle/ foot, now moving to left ankle/foot. Taking Tylenol at home with minimal relief. He was evaluated at urgent care last week where he had x-rays showing chronic calcification . He was discharged home with an Erick wrap. He was not prescribed any medications. Reports increasing pain/ swelling, worse with ambulation. Denies recent travel or long car rides. Denies blunt trauma, injury, fall. Denies history of similar. Denies history of gout. Denies hx of DM. No history of VTE. Denies fever, chills, nausea vomiting, numbness/tingling/weakness of the lower extremities. Related Data Previous Rx's ?Medication ?Instructions ?Recorded cetirizine 10 mg tablet 10 mg PO DAILY allergy symptoms 90 12/15/23 days #90 tabs epinephrine 0.3 mg/0.3 mL 0.3 mg (0.3 mL) IM Q10M PRN 12/15/23 injection, auto-injector (EpiPen anaphylaxis #2 ea 2-Sukhdeep) fluticasone propionate 50 1 spray intranasal BID 30 days #16 12/15/23 mcg/actuation nasal grams spray,suspension (Flonase Allergy Relief) pantoprazole 20 mg tablet,delayed 20 mg PO DAILY 15 days #15 tabs 06/09/24 release lactulose 20 gram/30 mL oral 20 g (30 mL) PO BID PRN laxative 06/12/24 solution effect 20 days #1,200 mL methylprednisolone 4 mg tablets in 4 mg PO DAILY #1 ea 06/17/24 a dose pack (Medrol (Sukhdeep)) naproxen 500 mg tablet 500 mg PO BID #14 tabs 06/17/24 Allergies Allergy/AdvReac Type Severity Reaction Status Date / Time No Known Allergies Allergy Verified 06/17/24 19:05 [No Known Allergies*] Review of Systems 2 Review of Systems: Constitutional: No fever, chills, fatigue, night sweats, weight changes ENT/Mouth: No ear pain, hearing loss, nasal congestion, sinus pain, rhinorrhea, sore throat Eyes: No eye pain, swelling, redness, vision changes, discharge Cardio: No chest pain, palpitations, ESPINAL, orthopnea, peripheral edema Pulm: No SOB, cough, sputum, wheezing, dyspnea, hemoptysis GI: No nausea, vomiting, hematemesis, abdominal pain, diarrhea, constipation, hematochezia, melena : No irregular bleeding, dysuria, frequency, urgency, hesitancy, hematuria, flank pain, urinary flow changes, urinary incontinence or retention MSK: No back pain, neck pain, joint pain, myalgias, +b/l foot/ ankle pain Skin: No lesions, rashes Neuro: No weakness, numbness, paresthesias, LOC, dizziness, headache Psych: No anxiety/panic, depression, SI/HI, AH/VH All other systems reviewed and are negative. [facility] Past Medical History Attestation statement: The following information was validated with the patient. Source: old records reviewed and nursing notes reviewed Medical History COVID-19 vaccine series completed GERD (gastroesophageal reflux disease) Allergic reaction Surgical History History of esophagogastroduodenoscopy (EGD) Hx of hernia repair H/O colonoscopy History of right knee surgery Family History Family History Father In good health Mother In good health Social History Social History Housing: House Alcohol intake: current Alcohol intake frequency: a few times a month Patient Tobacco Use Status: Never used Tobacco e-Cigarette/Vaping Use: Never Used Second Hand Smoke Exposure: No Advance Directives: No Advance Directives Information Provided: No Do you have a plan to hurt others: No Plan service: No Current occupational status: employed Current occupation: [employer] Cognitive needs: No Hearing needs: No Vision needs: Yes Physical Exam ED Vital Signs: Vital Signs - 24 hr 06/17/24 19:04 06/17/24 20:49 06/17/24 22:54 Temperature 98.4 F 99.4 F 99.4 F Pulse Rate 107 H 105 H 105 H Respiratory Rate 18 16 16 Blood Pressure 120/78 106/68 106/68 Pulse Oximetry 100 95 95 Oxygen Delivery Method Room Air Room Air Room Air BMI result Body Mass Index 11.1 Tachycardic on arrival. Afebrile. Vitals otherwise WNL General: Well appearing, in no acute distress. Skin: Warm, dry, intact. No rashes or lesions. Head: Normocephalic, atraumatic. EENT: Hearing is intact b/l. Conjunctiva clear. PERRLA. EOM intact. Moist mucous membranes.? Cardiac: Chest wall symmetric. RRR. Lungs: Normal respiratory effort without accessory muscle use. CTA bilaterally Back: No midline spinous or paraspinal tenderness. No step off deformity. Ext: noted swelling to the right ankle without obvious deformity or overlying erythema. He is tender to palpation over right lateral malleoli. ROM intact to right ankle and all toes. Minimal swelling noted to left ankle. No overlying erythema or deformity. Nontender to palpation. No tenderness over Achilles tendon or plantar fascia bilaterally. No calf tenderness bilaterally. Neuro: AOx3. Normal speech.NV intact distally. Ambulating with steady gait. Psych: Appropriate mood and affect. Responds appropriately to questions. Course Course Course Narrative: RME, this is a rapid medical exam performed by Jh Baptiste please refer to primary provider for complete H&P- 64 year old male presents for evaluation of bilateral foot pain and swelling since last week. Symptoms started on the right leg but now seem worse on the left. Went to urgent care last week and had xrays that showed chronic calcifications. Plan for labs Reevaluation(s) Reevaluation #1: 2032 -- CBC without leukocytosis or left shift. Slight normocytic anemia, H&H above transfusion threshold. Chemistry without acute electrolyte abnormality requiring intervention. No RACHANA. Normal liver function. BNP WNL, CHF unlikely. Uric acid pending. X-rays pending. Patient provided Toradol for pain control. > did review x-rays of right foot/ankle obtained on 05/1924. X-ray show moderate to severe talocrural osteoarthritis without acute fracture. There is a prominent heel spur. There are degenerative calcifications in the distal Achilles tendon and plantar fascia origin. 2119 -- uric acid wnl > gout unlikely. patient stable at the end of my shift. sign out given to my colleague Melida MILLER pending imaging and disposition. Reevaluation #2: I Cherry Matute PA-C have accepted care Of the patient and signed out pending imaging and likely discharge I have independently reviewed the following tests: X-ray:CLINICAL INFORMATION: Swelling and pain. COMPARISON: Radiograph right ankle and right foot 06/12/2024. TECHNIQUE: 3 views of the right ankle and 3 views of the right foot. FINDINGS: No significant change compared to a few days earlier. Severe talocrural osteoarthritis with marked narrowing along the lateral aspect resulting in valgus orientation. Severe degenerative changes at the junction of the fibula and talus. Chronic ossific/calcific densities adjacent to the medial and lateral malleoli. Degenerative calcifications in the region of the distal Achilles tendon and origin of the plantar facia. Unchanged possibly second through fourth hammer toes. Stable diffuse soft tissue swelling more noticeable around the ankle with stable anterior and posterior joint effusions. XR/XR foot RT min 3V IMPRESSION: No significant change compared to 06/12/2024. Xray ankle: CLINICAL INFORMATION: Swelling and pain. COMPARISON: None available. TECHNIQUE: 3 views of the left ankle and 3 views of the left foot. FINDINGS: No acute fracture or dislocation. Moderate talocrural osteoarthritis as well as moderate degenerative changes at the junction of the distal fibula with the lateral process of the talus. Degenerative calcifications at the insertion site of the plantar facia. Mild degenerative osteoarthritis of the first metatarsophalangeal joint. Diffuse soft tissue swelling, significantly lesser than compared to the contralateral right side. XR/XR ankle LT min 3V IMPRESSION: 1. No acute fracture. 2. Multifocal degenerative changes and soft tissue swelling, lesser in severity compared to the right side. Medications Administered Discontinued Medications Generic Name Dose Route Start Last Admin Trade Name Freq PRN Reason Stop Dose Admin Ketorolac Tromethamine 30 mg 06/17/24 20:21 06/17/24 20:26 Ketorolac Tromethamine 30 Mg/Ml Vial IM 06/17/24 20:22 30 mg ONCE ONE Administration Medical Decision Making Medical Decision Making [facility] Narrative: 64 year old male with no significant pmhx significant for GERD presents to the ED today for evaluation of bilateral foot/ankle pain and swelling x1 week. Tachycardic, vitals otherwise wnl. He is afebrile. Nontoxic appearing and in NAD. On exam of lower extremities, there is noted swelling to the right ankle without obvious deformity or overlying erythema. He is tender to palpation over right lateral malleoli. ROM intact to right ankle and all toes. Minimal swelling noted to left ankle. No overlying erythema or deformity. Nontender to palpation. No tenderness over Achilles tendon or plantar fascia bilaterally. No calf tenderness bilaterally. 2+ PT/DP pulse intact bilaterally. Differential diagnosis includes arthritis, gout, pseudogout, fracture, dislocation, MSK sprain/strain, RA. Unlikely Charcot foot, osteomyelitis, septic joint, Lyme arthritis. Plan for labs, xrays, pain control, and re-evaluation. Differential Diagnosis Differential Diagnoses: The differential diagnosis associated with the presentation includes As above Admission/Observation Not indicated. Lab Data [facility] Lab Attestation statement: I reviewed the patient's lab results. as above. 06/17/24 19:19 06/17/24 19:19 Labs: Lab Results 06/17/24 06/17/24 Range/Units 19:19 20:30 WBC 9.5 (4.8-10.8) X10*3/uL RBC 4.42 L (4.60-5.80) X10*6/uL Hgb 13.6 L (14.0-18.0) g/dl Hct 40.0 L (42.0-52.0) % MCV 90.5 (80.0-98.0) fL MCH 30.8 (27.0-33.0) pg MCHC 34.0 (31.0-36.0) g/dl RDW 12.4 (11.0-16.0) % Plt Count 264 D (160-400) X10*3/uL MPV 10.7 (9.4-12.4) fL Immature Gran % (Auto) 0.3 (0.0-0.4) % Neut % (Auto) 67.1 (45-73) % Lymph % (Auto) 19.6 L (20-40) % [place] % (Auto) 10.7 (2-11) % Eos % (Auto) 1.2 (0-4) % Baso % (Auto) 1.1 (0-2) % Lymph # (Auto) 1.9 (1.2-4.9) X10*3/uL [place] # (Auto) 1.0 (0.1-1.2) X10*3/uL Eos # (Auto) 0.1 (0.0-0.4) X10*3/uL Baso # (Auto) 0.1 (0.0-0.2) X10*3/uL Abs Immat Gran (auto) 0.03 (0.00-0.03) X10*3/uL Absolute Neuts (auto) 6.4 (2.0-8.3) x10*3/uL Absolute Nucleated RBC 0.000 (0.0-0.012) X10*3/uL Nucleated RBC % (auto) 0.0 (0.0-0.2) /100WBC Sodium 138 (135-145) mmol/L Potassium 3.9 (3.3-5.1) mmol/L Chloride 106 (96-108) mmol/L Carbon Dioxide 21 L (22-29) mmol/L Anion Gap 15 (12-20) BUN 14 (9-16) mg/dL Creatinine 0.76 (0.5-1.4) mg/dL Estim Creat Clear Calc 53.9 Estimated GFR > 60 Random Glucose 115 (60-115) mg/dL Uric Acid 4.3 (3.4-7.0) mg/dL Calcium 9.6 (8.4-10.2) mg/dL Total Bilirubin 1.0 (0.0-1.0) mg/dL AST 21 (5-37) U/L ALT 17 (0-40) U/L Alkaline Phosphatase 72 (39-117) U/L B-Natriuretic Peptide < 10 (<100) pg/mL Total Protein 7.4 (6.5-8.0) g/dL Albumin 3.8 (3.5-5.0) g/dL Lipase 18 (8-78) U/L Independent Interpretation I performed an independent interpretation of an: Plain X-Ray Radiology Impression Discussion of test interpretation with radiology: I have reviewed the radiologist's reading. External Record Review External record reviewed: Inpatient record Prescription Management I considered prescription management with: Pain Medication and Other (steroid) Social Determinants Patient?s care significantly limited by Social Determinants of Health including: Other Social Determinant of Health Critical Care Time Critical Care Time Critical Care Time: No Discharge Plan Discharge Clinical Impression: Arthritis Patient Disposition: Home, Self-Care Instructions: Osteoarthritis (ED) Additional Instructions: Again, you were found to have extreme arthritis in the joints. There were no change in the x-rays. See home care instructions. Use the naproxen as directed and the steroid taper as directed. Continue to follow up with your primary care provider Prescriptions: New methylprednisolone [Medrol (Sukhdeep)] 4 mg tablets,dose pack 4 mg PO DAILY Qty: 1 0RF Rx Instructions: Take per package instructions naproxen 500 mg tablet 500 mg PO BID Qty: 14 0RF No Action pantoprazole 20 mg tablet,delayed release (DR/EC) 20 mg PO DAILY 15 Days Qty: 15 0RF cetirizine 10 mg tablet 10 mg PO DAILY 90 Days Qty: 90 3RF epinephrine [EpiPen 2-Sukhdeep] 0.3 mg/0.3 mL auto-injector 0.3 mg IM Q10M PRN (Reason: anaphylaxis) Qty: 2 0RF Rx Instructions: for 2 doses fluticasone propionate [Flonase Allergy Relief] 50 mcg/actuation spray,suspension 1 spray intranasal BID 30 Days Qty: 16 1RF Rx Instructions: administer into each nostril lactulose 20 gram/30 mL solution 20 g PO BID PRN (Reason: laxative effect) 20 Days Qty: 1200 0RF Interventions: ED Discharge Assessment Last Done: 06/17/24 22:54 Discharge Date/Time: 06/17/24 22:54 Print Language: Faroese
[2024-06-17 19:25] LABS: MANUAL DIFF FLAG NO
[2024-06-17 19:29] LABS: Basophils Absolute Auto 0.1 X10*3/uL (0.0-0.2); Basophils Percent Auto 1.1 % (0-2); Eosinophils Absolute Auto 0.1 X10*3/uL (0.0-0.4); Eosinophils Percent Auto 1.2 % (0-4); Hemoglobin 13.6 g/dl (14.0-18.0); Imm Gran Abs Auto 0.03 X10*3/uL (0.00-0.03); Imm Gran Pct Auto 0.3 % (0.0-0.4); Lymphocytes Absolute Auto 1.9 X10*3/uL (1.2-4.9); Lymphocytes Percent Auto 19.6 % (20-40); Mean Corpuscular Hemoglobin 30.8 pg (27.0-33.0); Mean Corpuscular Volume 90.5 fL (80.0-98.0); Mean Platelet Volume 10.7 fL (9.4-12.4); Monocytes Percent Auto 10.7 % (2-11); Neutrophils Absolute Auto 6.4 x10*3/uL (2.0-8.3); Neutrophils Percent Auto 67.1 % (45-73); Platelet Count 264 X10*3/uL (160-400); Red Blood Count 4.42 X10*6/uL (4.60-5.80); Red Cell Distribution Width 12.4 % (11.0-16.0); White Blood Count 9.5 X10*3/uL (4.8-10.8)
[2024-06-17 19:49] LABS: B Type Natriuretic Peptide < 10 pg/mL (<100)
[2024-06-17 19:55] LABS: Alanine Aminotransferase 17 U/L (0-40); Albumin Level 3.8 g/dL (3.5-5.0); Alkaline Phosphatase 72 U/L (39-117); Anion Gap 15 (12-20); Aspartate Amino Transferase 21 U/L (5-37); Blood Urea Nitrogen 14 mg/dL (9-16); Calcium 9.6 mg/dL (8.4-10.2); Carbon Dioxide 21 mmol/L (22-29); Chloride 106 mmol/L (96-108); Creatinine Clr Calc Pharmacy 53.9; Estimated Glomerular Filt Rate > 60; Glucose Random 115 mg/dL (60-115); Lipase 18 U/L (8-78); Potassium 3.9 mmol/L (3.3-5.1); Sodium 138 mmol/L (135-145); Total Protein 7.4 g/dL (6.5-8.0)
[2024-06-17] MEDS: Ketorolac Tromethamine 30 MG/ML VIAL IM (20:26)
--- NOTE | 2024-06-17 20:36 | PC.NURSE ---
pt a&ox3, pt states he has 8/10 bilateral foot pain, pt medicated for pain per order, radiology at bedside to obtain xrays, labs drawn by tech.
[2024-06-17 20:49] VITALS: BP 106/68; PULSE 105; RESP 16; TEMP 37.4; O2SAT 95
[2024-06-17 21:01] LABS: Uric Acid 4.3 mg/dL (3.4-7.0)
[2024-06-17 22:54] VITALS: BP 106/68; PULSE 105; RESP 16; TEMP 37.4; O2SAT 95
== END 2024-06-17 22:54 | disposition home or self-care (01) ==
PROVIDERS: Physician Assistant; Physician Assistant Medical; Emergency Provider Emergency Medicine; PCP Physician Assistant
DX: R60.0 Localized edema (principal); M19.072 Primary osteoarthritis, left ankle and foot; M19.071 Primary osteoarthritis, right ankle and foot; M79.672 Pain in left foot; M79.671 Pain in right foot; K21.9 Gastro-esophageal reflux disease without esophagitis; Z79.899 Other long term (current) drug therapy
CPT/HCPCS: 36415; 73610; 73630; 80053; 83690; 83880; 84550; 85025; 96372; 99283; 99284; J1885

== ENCOUNTER 2024-06-28 10:14 | Outpatient (AMB) | payer OTHER, SELFPAY ==
--- NOTE | 2024-06-28 10:19 | A.OFFPC_ITS ---
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 Accompanied by: Self / Same As Patient Allergies doxycycline Adverse Reaction (Intermediate, Verified 06/28/24 10:46) Rash Medication List - Last Reconciled 06/28/24 by Jorge Montejo PA-C cetirizine 10 mg PO DAILY 90 days epinephrine (EpiPen 2-Sukhdeep) 0.3 mg (0.3 mL) IM Q10M PRN fluticasone propionate 50 mcg/actuation (Flonase Allergy Relief) 1 spray intranasal BID 30 days lactulose 20 grams (30 mL) PO BID PRN 20 days methylprednisolone (Medrol (Sukhdeep)) 4 mg PO DAILY naproxen 500 mg PO BID pantoprazole 20 mg PO DAILY 15 days Tobacco use date assessed: 12/15/23 Dental Screening Dental Screen Date: 12/15/23 HPI sciatic pain 2 HPI0 Details Patient is a 64-year-old male here today for problem visit. He has been having lower back and buttocks pain radiating down his lower extremity over the last few weeks. Has been using naproxen and has tried a prednisone taper without any significant relief. Of note did get x-ray of his lumbar spine in 2021 that did show disc space narrowing at L5-S1. PLAN: Interested in restarting physical therapy which has helped in the past. Will also supply with a muscle relaxer He has also seen at a local urgent care for what was thought to be an abscess the posterior aspect of his neck. Was given doxycycline though seems to have had a allergic reaction (rash on his back and lower extremity pain). Still has a lump on the back of his neck. Will refer to general surgeon for removal of the subcutaneous lump. [facility] Medical History COVID-19 vaccine series completed GERD (gastroesophageal reflux disease) Allergic reaction Surgical History History of esophagogastroduodenoscopy (EGD) Hx of hernia repair H/O colonoscopy History of right knee surgery Family History Father In good health Mother In good health Social History Housing: House Alcohol intake: current Alcohol intake frequency: a few times a month Patient Tobacco Use Status: Never used Tobacco e-Cigarette/Vaping Use: Never Used Second Hand Smoke Exposure: No service: No Current occupational status: employed Current occupation: [employer] Cognitive needs: No Hearing needs: No Vision needs: Yes Questionnaire Thrive Questionnaire Date Thrive assessed: 12/15/23 EMEKA-7 AMB Questionnaire EMEKA-7 Date EMEKA - 7 assessed: 12/15/23 Source: Developed by Drs. Travis Holland, Myah Hermosillo, Octavio Gonzalez and colleagues, with an educational kalie from [employer]. Review of Systems Const Denies headache(s) Eyes Denies loss of vision ENT Denies vertigo, Denies dizziness, Denies headache(s) and Denies sore throat Card Denies chest pain, Denies leg edema and Denies lightheadedness Resp Denies cough, Denies hemoptysis and Denies wheezing GI Denies abdominal pain, Denies melena, Denies constipation, Denies diarrhea and Denies vomiting Denies dysuria, Denies urinary frequency and Denies urinary urgency Musc Denies arthralgias, Denies joint swelling, Denies numbness and Denies tingling Neuro Denies Abnormal speech present, Denies behavioral changes, Denies vertigo, Denies dizziness, Denies headache(s), Denies loss of vision, Denies memory loss, Denies numbness and Denies tingling Psych Denies anxiety, Denies behavioral changes, Denies depression, Denies memory loss and Denies panic attacks Marino/Lymph Denies easy bleeding and Denies easy bruising Aller/Immun Denies wheezing Physical exam (Primary Care) Vital Signs: Last Vital Signs Pulse 79 06/28/24 10:26 BP 102/70 06/28/24 10:26 Pulse Ox 97 06/28/24 10:26 Oxygen Delivery Method Room Air 06/28/24 10:26 BMI result Body Mass Index 24.3 Tobacco/Smoking Status: Tobacco use Status Tobacco use date assessed 12/15/23 06/28/24 10:19 Patient Tobacco Use Status Never used Tobacco 06/28/24 10:19 e-Cigarette/Vaping Use Never Used 06/28/24 10:19 Thrive Assessment: Date of Thrive Assessment Date Thrive assessed 12/15/23 06/28/24 10:19 Const General: healthy appearing, no acute distress, alert and awake Nutritional Appearance: well nourished Orientation/consciousness: oriented to person, oriented to place and oriented to time HENMT Ears: TM's normal bilaterally General nose exam: Normal nasal mucous membranes and turbinates present Eyes Conjunctivae: conjunctivae normal Sclerae: sclerae normal Pupils: Equal, round and reactive pupils present Neck Other: Neck: Yes no lymphadenopathy and Yes no JVD Thyroid: Thyroid normal Carotids: no bruits Resp Effort & Inspection: normal respiratory effort and not tachypneic Auscultation: no crackles, no rales, no rhonchi and no wheezes Cardio Rate: regular rate Rhythm: regular rhythm Heart sounds: no murmurs and normal S1 and S2 GI Palpation (GI): Soft to palpation, nontender, no hepatomegaly and no splenomegaly Auscultation: normal bowel sounds Skin General skin exam: no rashes or lesions noted and dry skin Neuro General: oriented to person, oriented to place and oriented to time Cranial nerves: Yes Equal, round and reactive pupils present Speech: No Abnormal speech present Gait exam (Neuro): Normal gait present Motor exam (neuro): no tremor noted Extrem Right upper extremity: full ROM Left upper extremity: full ROM Right lower extremity: full ROM; no edema Left lower extremity: full ROM; no edema Psych Mental Status: mental status grossly normal Speech and movement: Normal speech and movement present Affect: normal affect Attitude: cooperative Thought process: Normal thought process present Coding Level of Care Code Est Pt Level 4 (98035) Diagnoses Lumbar spine pain M54.50 Subcutaneous cyst L72.9 Anemia, unspecified type D64.9 Anemia type: unspecified type Assessment & Plan Assessment & Plan (1) Lumbar spine pain: Code(s): M54.50 - Low back pain, unspecified Category: Medical Plan: As per HPI patient has a history of lumbar spine disc disease. He will likely benefit from formal physical therapy. Will supply patient with NSAID and muscle relaxer for his pain. Will consider gabapentin if pain worsens. (2) Subcutaneous cyst: Code(s): L72.9 - Follicular cyst of the skin and subcutaneous tissue, unspecified Category: Medical Plan: PLEASE SEE PICTURE IN PHYSICAL EXAM SECTION Seems to have a subcutaneous cyst over posterior aspect of his neck. He would like removal with general surgeon. (3) Anemia: Code(s): D64.9 - Anemia, unspecified Category: Medical Qualifiers: Anemia type: unspecified type Qualified Code(s): D64.9 - Anemia, unspecified Plan: Noted to have slight anemia most recent labs. Will recheck CBC Orders: Orders 2 PT Evaluation and Treatment 06/28/24 M51.9 - Unspecified thoracic, thoracolumbar and lumbosacral intervertebral disc disorder, M54.50 - Low back pain, unspecified Complete Blood Count no Diff 06/28/24 D64.9 - Anemia, unspecified Referrals 2 General Surgery Referral L72.9 - Follicular cyst of the skin and subcutaneous tissue, unspecified Medications: New 2 cyclobenzaprine 5 mg PO BEDTIME 15 tabs 1RF 15 days L72.9 - Follicular cyst of the skin and subcutaneous tissue, unspecified Changed 2 From naproxen 500 mg PO BID 14 tabs 0RF M54.50 - Low back pain, unspecified To naproxen 500 mg PO BID 30 tabs 0RF 15 days M54.50 - Low back pain, unspecified
[2024-06-28 10:26] VITALS: BP 102/70; PULSE 79; O2SAT 97; BMI 24.3
== END 2024-06-28 10:49 | disposition home or self-care (01) ==
LOC: HO.HMCH 10:14
PROVIDERS: PCP Physician Assistant; Visit Provider Physician Assistant
DX: M54.50 Low back pain, unspecified (principal); L72.9 Follicular cyst of the skin and subcutaneous tissue, unspecified; D64.9 Anemia, unspecified

== ENCOUNTER → 2024-06-28 10:14 | Outpatient (BNVA) | payer OTHER, SELFPAY | PROVIDERS: PCP Physician Assistant; Visit Provider Physician Assistant ==

== ENCOUNTER 2024-07-19 10:18 | Outpatient (AMB) | payer OTHER, SELFPAY ==
--- NOTE | 2024-07-19 10:33 | A.OFFVIS_ITS ---
Vital Signs 07/19/24 10:36 Height 6 ft 1 in Weight 187 lb BMI 24.7 BP 120/79 Blood Pressure Location Rt brachial Position Sitting Pulse 90 Intake Visit Reasons: Follicular cyst of the skin and subcutaneous tiss Intake Note: Patient referred by pcp Jorge Montejo PA-C for cyst on Right posterior neck. Present for 1m. Patient c/o: denies oozing, painful. 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 It was recently infected/inflamed. It was given antibiotics and now presents here for further evaluation. He would like to have it excised. Chart was reviewed and patient evaluated [facility] Medical History COVID-19 vaccine series completed GERD (gastroesophageal reflux disease) Allergic reaction Surgical History History of esophagogastroduodenoscopy (EGD) Hx of hernia repair H/O colonoscopy History of right knee surgery Family History Father In good health Mother In good health Social History Housing: House Alcohol intake: current Alcohol intake frequency: a few times a month Patient Tobacco Use Status: Never used Tobacco e-Cigarette/Vaping Use: Never Used Second Hand Smoke Exposure: No service: No Current occupational status: employed Current occupation: [employer] Cognitive needs: No Hearing needs: No Vision needs: Yes Physical Exam Vital Signs: Last Vital Signs Pulse 90 07/19/24 10:36 BP 120/79 07/19/24 10:36 BMI result Body Mass Index 24.7 Neck Other: Right posterior neck demonstrates a resolving inflamed right posterior neck sebaceous cyst measuring roughly 3 x 2 cm. Assessment & Plan Assessment & Plan (1) Inflamed sebaceous cyst: Code(s): L72.3 - Sebaceous cyst Category: Surgical Plan Current plan is to let the inflammatory process resolved completely and then an office excision on a day which is convenient for the patient. Should this cyst become infected again, patient has been instructed to call the office. Patient otherwise see me as directed. All questions answered. Coding Level of Care Code New Pt Level 4 (19595) Diagnoses Inflamed sebaceous cyst L72.3
[2024-07-19 10:36] VITALS: BP 120/79; PULSE 90; BMI 24.7
== END 2024-07-19 10:40 | disposition home or self-care (01) ==
PROVIDERS: PCP Physician Assistant; Referring Provider Physician Assistant; Visit Provider Surgery
DX: L72.3 Sebaceous cyst (principal)
CPT/HCPCS: 99204

== ENCOUNTER 2024-07-27 08:49 | Outpatient (REF) | payer OTHER, SELFPAY | END 2024-07-27 08:50 | disposition home or self-care (01) | LOC: HO.LNP 08:49 | PROVIDERS: PCP Physician Assistant; Visit Provider Surgery | DX: L72.3 Sebaceous cyst (principal) | CPT/HCPCS: 11423; 88304 ==

== ENCOUNTER 2024-07-27 08:50 | Outpatient (AMB) | payer OTHER, SELFPAY ==
[2024-07-27 09:00] VITALS: BP 124/72; O2SAT 78; BMI 24.7
--- NOTE | 2024-07-27 09:00 | A.OFFVIS_ITS ---
Vital Signs 07/27/24 09:00 Height 6 ft 1 in Weight 187 lb BMI 24.7 BP 124/72 Blood Pressure Location Rt brachial Position Sitting Pulse Oximetry (%) 78 L Intake Visit Reasons: exc~ cyst Rt post neck Intake Note: Patient here for cyst excision on rt post neck. 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 Accompanied by: Self / Same As Patient Allergies doxycycline Adverse Reaction (Intermediate, Verified 07/27/24 09:00) Rash Medication List - Last Reconciled 07/27/[address] MD cetirizine 10 mg PO DAILY 90 days cyclobenzaprine 5 mg PO BEDTIME 15 days epinephrine (EpiPen 2-Sukhdeep) 0.3 mg (0.3 mL) IM Q10M PRN fluticasone propionate 50 mcg/actuation (Flonase Allergy Relief) 1 spray intranasal BID 30 days lactulose 20 grams (30 mL) PO BID PRN 20 days methylprednisolone (Medrol (Sukhdeep)) 4 mg PO DAILY naproxen 500 mg PO BID 15 days pantoprazole 20 mg PO DAILY 15 days HPI Comments Details: Patient presents for left posterior neck sebaceous cyst excision. Risks, benefits, alternatives of the procedure reviewed with the patient and included but not limited to bleeding, infection, recurrence, numbness, pain, scarring, seroma formation, wound dehiscence and the patient wished to proceed. All questions answered. Consent signed. [facility] Medical History COVID-19 vaccine series completed GERD (gastroesophageal reflux disease) Allergic reaction Surgical History History of esophagogastroduodenoscopy (EGD) Hx of hernia repair H/O colonoscopy History of right knee surgery Family History Father In good health Mother In good health Social History Housing: House Alcohol intake: current Alcohol intake frequency: a few times a month Patient Tobacco Use Status: Never used Tobacco e-Cigarette/Vaping Use: Never Used Second Hand Smoke Exposure: No service: No Current occupational status: employed Current occupation: [employer] Cognitive needs: No Hearing needs: No Vision needs: Yes Physical Exam Vital Signs: Last Vital Signs BP 124/72 07/27/24 09:00 Pulse Ox 78 L 07/27/24 09:00 BMI result Body Mass Index 24.7 Office Procedures Excision Details: After appropriate positioning, patient underwent % lidocaine and Betadine prep and uneventful by elliptical incision of a specimen measuring roughly 3 x 2 cm of a sebaceous cyst. Specimen sent to pathology. Wound was irrigated, secured hemostasis, and closed using running 3-0 Vicryl suture followed by Steri-Strips and sterile dressings. Patient tolerated procedure well. [id number] scalp/neck/hands/feet/genitalia 2.1cm-3cm Procedure code (CPT) selection complete Office Meds lidocaine 1 %-epinephrine 1:100,000 injection solution Performing Provider: Ravin St MD [place] [facility] [place] [facility] Administered by: Ravin St MD on 07/27/24 09:26 Dose Route Admin Location Dispensed Lot Number Expiration Date NDC Computer Support Specialist Instructor 10 mL Infiltration 10 mL Assessment & Plan Assessment & Plan (1) Sebaceous cyst: Code(s): L72.3 - Sebaceous cyst Category: Surgical Plan Patient has been given local instructions including Tylenol or Motrin p.r.n. pain, ice to the wound periodically, may shower in 2 days removing only outside dressing leaving Steri-Strips intact, no strenuous activities, patient will see me in about roughly 1 week's time or p.r.n.. All questions answered Orders: Orders AMB Excision Today L72.3 - Sebaceous cyst Medications: New lidocaine-epinephrine 1 %-1:100,000 10 mL Infiltration ONCE 30 mL 0RF L72.3 - Sebaceous cyst Coding Level of Care Code Est Pt Level 5 (43845) Diagnoses Sebaceous cyst L72.3 CPT Codes Scalp/Neck/Hands/Feet/Genetalia - CPT: [id number] scalp/neck/hands/feet/genitalia 2.1cm-3cm ([id number])
== END 2024-07-27 09:22 | disposition home or self-care (01) ==
PROVIDERS: PCP Physician Assistant; Visit Provider Surgery
DX: L72.0 Epidermal cyst (principal)
CPT/HCPCS: 11423

== ENCOUNTER 2024-08-04 08:29 | Outpatient (AMB) | payer OTHER, SELFPAY ==
--- NOTE | 2024-08-04 08:34 | A.OFFVIS_ITS ---
Intake Visit Reasons: s/p exc~ cyst Rt post neck Intake Note: Patient here s/p cyst excision on Rt post neck. Patient c/o: rash around incision. Keeps site covered w/ band-aids. 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 The wound issues aside from bit of a rash related to either the tape or Steri-Strips. Pathology is benign PFSH Medical History COVID-19 vaccine series completed GERD (gastroesophageal reflux disease) Allergic reaction Surgical History History of esophagogastroduodenoscopy (EGD) Hx of hernia repair H/O colonoscopy History of right knee surgery Family History Father In good health Mother In good health Social History Housing: House Alcohol intake: current Alcohol intake frequency: a few times a month Patient Tobacco Use Status: Never used Tobacco e-Cigarette/Vaping Use: Never Used Second Hand Smoke Exposure: No service: No Current occupational status: employed Current occupation: [employer] Cognitive needs: No Hearing needs: No Vision needs: Yes Physical Exam Neck Other: Incision clean dry and intact. Some surrounding dermatitis but no evidence of any infection. Assessment & Plan Assessment & Plan (1) Postop check: Code(s): Z09 - Encounter for follow-up examination after completed treatment for conditions other than malignant neoplasm Category: Surgical Plan Patient was been given local instructions including applying [id number] cortisone cream to the area and will otherwise follow-up p.r.n.. Should the rash become more symptomatic or progress, he has been instructed to contact the office. All questions answered. Coding Level of Care Code Global (09720) Diagnoses Postop check Z09
== END 2024-08-04 08:41 | disposition home or self-care (01) ==
PROVIDERS: PCP Physician Assistant; Visit Provider Surgery
DX: Z09 Encounter for follow-up examination after completed treatment for conditions other than malignant neoplasm (principal)
CPT/HCPCS: 99024

== ENCOUNTER 2024-11-05 08:55 | Outpatient (REF) | payer OTHER, SELFPAY ==
--- OUTSIDE RECORDS SUMMARY | 2024-11-05 09:18 | XMS_ITS | Patient Health Record ---
Author Organization [facility] Address [address] [place] [address] Care Team Providers Care Sports Statistician Name Role Phone Jorge Montejo Primary Care Provider Unavailab Servando Zuñiga Jr Unavailable Allergies No Known Allergies Reason For Referral No Information Medications Medication SIG (Take, Route, Frequency, Duration) Notes Start Date End Date Status DOK 100 MG TAKE ONE CAPSULE BY MOUTH DAILY Oral for 90 Active Lactulose 10 GM/15ML TAKE 30ML BY MOUTH TWICE DAILY NEEDED FOR CONSTIPATION Oral for 10 Active predniSONE 5 MG Oral for 14 Ac tive Metoclopramide HCl 5 MG TAKE 1 TABLET BY MOUTH THREE TIMES DAILY FOR 15 DAYS Diagnosis Unavailable Oral for 15 Active Levocetirizine Dihydrochloride 5 MG TAKE 1 TABLET BY MOUTH EVERY DAY EVERY MORNING Oral for 30 Active Pantoprazole Sodium 40 MG 1 tablet Orall y Once a day for 30 day(s) 01/12/2021 Active Cetirizine HCl 10 MG TAKE 1 TABLET BY MO UTH DAILY Oral for 90 Active Immunizations Vaccine Route Administration Date Status Comme nts Influenza Unknown 06/16/2018 Administered Influenza Unknown 10/24/2019 Administered Influenza Unknown 12/31/2021 Refused Social History Alcohol Screen Question Answer Notes Did you have a drink contain ing alcohol in the past year? Yes How often did you have a dri nk containing alcohol in the past year? 2 to 4 times a month (2 points) How many drinks did you have on a typical day when you were drinking in the past year? 3 or 4 drinks (1 point) Points 3 Interpretation Negative Problems Problem Type SNOMED Code ICD Code Onset Dates Problem Status W/U Status Risk Notes Problem Colon cancer screening (476156209) Colon cancer screening (Z12.11) Active confirmed Problem 63039265 Rectal bleeding (K62.5) Active confirmed Problem 29415261 Epigastric pain (R10.13) Active confirmed Problem 914713051 Bloating (R14.0) Active confirmed Problem 46465131 Constipation, unspecified constipation type (K59.00) Active confirmed Problem 619720049 GERD without esophagitis (K21.9) Active confirmed Problem Left upper quadrant pain (197537659) LUQ pain (R10.12) Active confirmed Problem 36870195 Change in bowel function (R19.8) Active confirmed Plan Of Treatment Pending Test Test Name Order Date LIVER PROFILE 12/23/2019 LIPASE 12/23/2019 CBC w/o DIFF 12/23/2019 CELIAC DISEASE ANTIBODY PANEL 12/23/2019 CT ABD WITH PO CONTRAST ONLY 11/12/2013 TSH REFLEX FREE T4 12/23/2019 Future Test Test Name Order Date COLONOSCOPY 07/08/2013 COLONOSCOPY 08/05/2018 UPPER GI ENDOSCOPY 01/12/2021 UPPER GI ENDOSCOPY 12/31/2021 COLONOSCOPY 12/31/2021 Insurance Providers Payer Name Payer Address Payer Phone Subscriber Number Group Number Insured Name Patient Relationship to Insured Coverage Start Date Coverage End Date [facility] [address] [facility] [place], [place] [phone] [id number] LESLIE CULP Self - patient is the insured Medical (General) History Medical History History ICD Code urticaria gastroesophageal reflux dise ase, EGD 01/25/21 sliding hiatal hernia, no Bhardwaj's or H. pylori colonoscopy 10/23/18 4 small tubular adeno mas, three-year followup 11/13 Surgical History Surgery Date(Month/Year) hernia repair X2 knee surgery-right
[2024-11-05 09:37] LABS: Hematocrit 44.5 % (42.0-52.0); Hemoglobin 14.9 g/dl (14.0-18.0); Mean Corpuscular HGB Conc 33.5 g/dl (31.0-36.0); Mean Corpuscular Hemoglobin 30.8 pg (27.0-33.0); Mean Corpuscular Volume 92.1 fL (80.0-98.0); Mean Platelet Volume 12.1 fL (9.4-12.4); Platelet Count 154 X10*3/uL (160-400); Red Blood Count 4.83 X10*6/uL (4.60-5.80); Red Cell Distribution Width 12.9 % (11.0-16.0); White Blood Count 6.6 X10*3/uL (4.8-10.8)
== END 2024-11-05 08:56 | disposition home or self-care (01) ==
LOC: HO.LAB 08:55
PROVIDERS: PCP Physician Assistant; Visit Provider Physician Assistant
DX: D64.9 Anemia, unspecified (principal)
CPT/HCPCS: 36415; 85027

== ENCOUNTER 2025-05-26 10:01 | Outpatient (AMB) | payer OTHER, SELFPAY ==
[2025-05-26 10:09] VITALS: BP 106/62; PULSE 68; RESP 18; TEMP 36.2; O2SAT 94; BMI 24.8
--- NOTE | 2025-05-26 10:09 | A.OFFPC_ITS ---
Vital Signs 05/26/25 10:09 Height 6 ft 1 in Weight 188 lb BMI 24.8 BP 106/62 Blood Pressure Location Lt brachial Position Sitting Respiration 18 Pulse 68 Pulse Source Pulse Oximeter Temp 97.1 F Temp Source Temporal Artery Scan Pulse Oximetry (%) 94 Oxygen Delivery Method Room Air Intake Visit Reasons: CPE Peel Oven Tender Required: No Accompanied by: Self / Same As Patient Allergies doxycycline Adverse Reaction (Intermediate, Verified 05/26/25 10:32) Rash Medication List - Last Reconciled 05/26/25 by Jorge Montejo PA-C cetirizine 10 mg PO DAILY 90 days docusate sodium 100 mg PO DAILY epinephrine (EpiPen 2-Sukhdeep) 0.3 mg (0.3 mL) IM Q10M PRN fluticasone propionate 50 mcg/actuation (Flonase Allergy Relief) 1 spray intranasal BID 30 days lactulose 20 grams (30 mL) PO BID PRN 20 days methylprednisolone (Medrol (Sukhdeep)) 4 mg PO DAILY pantoprazole 40 mg PO DAILY Tobacco use date assessed: 05/26/25 Fall risk assessment: No Falls in past year Last assessed Fall Risk: 05/26/25 Dental Screening Dental Screen Date: 05/26/25 Did you have a dental visit in the last 12 months?: Yes Did you have a dental problem in the last 6 months where you did not have access to dental care?: No Was dental information given to patient?: Patient has dentist HPI CPE HPI Details Patient is a 65-year-old male here today for annual physical.? Patient has a past medical history significant for gastric reflux, idiopathic uticaria. .. Idiopathic Urticaria:? ? At this time it is still unclear what has caused him these allergic reactions. Has not had any outbreaks in over last year. Continues on antihistamine daily. Did have RAST panel which did show some moderate level IgE to wheat. --> The patient also experiences hives, which appear during the summer months, particularly during golf season. The hives are localized to one spot and are thought to be triggered by an airborne allergen. The patient uses cetirizine and [id number] topical treatments to manage the symptoms. .. Colonoscopy: Followed by Dr. Lange, has upcoming appointment for a colonoscopy Vaccines: Up-to-date with tetanus vaccine, up-to-date with COVID vaccine, Did not have Chicken pox.. [facility] Medical History Hiatal hernia COVID-19 vaccine series completed GERD (gastroesophageal reflux disease) Allergic reaction Surgical History History of esophagogastroduodenoscopy (EGD) (12/2021) Hx of hernia repair H/O colonoscopy (12/2021) History of right knee surgery Family History Father In good health Mother In good health Social History (Updated 05/26/25 @ 10:36 by Jorge Montejo PA-C) Housing: House Alcohol intake: current Alcohol intake frequency: a few times a month Patient Tobacco Use Status: Never used Tobacco e-Cigarette/Vaping Use: Never Used Second Hand Smoke Exposure: No service: No Current occupational status: employed Current occupation: [employer] Cognitive needs: No Hearing needs: No Vision needs: Yes Questionnaire PHQ-9 Over the last 2 weeks, how often have you been bothered by any of the following problems? 1. Little interest or pleasure in doing things: not at all 2. Feeling down, depressed, or hopeless: not at all 3. Trouble falling or staying asleep, or sleeping too much: not at all 4. Feeling tired or having little energy: not at all 5. Poor appetite or overeating: not at all 6. Feeling bad about yourself - or that you are a failure or have let yourself or your family down: not at all 7. Trouble concentrating on things, such as reading the newspaper or watching television: not at all 8. Moving or speaking so slowly that other people could have noticed. Or the opposite - being so fidgety or restless that you have been moving around a lot more than usual: not at all 9. Thoughts that you would be better off or of hurting yourself in some way: not at all Total score: 0 Depression Screening Interpretation: Negative Depression Screening Done: Yes 30697 - PHQ-9 Billing: Yes Source: Developed by Drs. Travis Holland, Myah Hermosillo, Octavio Gonzalez and colleagues, with an educational kalie from [employer]. Thrive Questionnaire Date Thrive assessed: 12/15/23 I am a: Patient What is your living situation today?: I have a steady place to live Within the past 12 months, did the food you bought not last and you didn't have the money to get more?: Never true Within the past 12 months, did you worry whether your food would run out before you got money to buy more?: Never true Do you have trouble paying for medicines?: No Do you have trouble getting transportation to medical appointments?: I choose not to answer this question Do you have trouble paying your heating and electricity bill?: I choose not to answer this question Do you have trouble taking care of your child, family member or friend?: I choose not to answer this question Do you have trouble with day-to-day activities such as bathing, preparing meals, shopping, managing finances, etc.?: I choose not to answer this question Are you currently unemployed and looking for a job?: I choose not to answer this question Are you interested in more education?: I choose not to answer this question Please select the resources that you would like help with: None Currently or been in a relationship where the following occur: I choose not to answer THRIVE Score: 0 AUDIT C Alcohol Use Questionnaire (AUDIT-C) 1. How often do you have a drink containing alcohol?: Monthly or less 2. How many drinks containing alcohol do you have on a typical day when you are drinking?: 3 or 4 3. How often do you have six or more drinks on one occasion?: Less than monthly Total Score: 3 EMEKA-7 AMB Questionnaire EMEKA-7 Date EMEKA - 7 assessed: 12/15/23 Feeling nervous, anxious, or on edge: 0 = Not at all Not being able to stop or control worryin = Not at all Worrying too much about different things: 0 = Not at all Trouble relaxin = Not at all Being so restless that it is hard to sit still: 0 = Not at all Becoming easily annoyed or irritable: 0 = Not at all Feeling afraid as if something awful might happen: 0 = Not at all Total EMEKA-7 score (0-4 normal; 5-9 mild; 10-14 moderate; 15-21 severe): 0 Source: Developed by Drs. Travis Holland, Myah Hermosillo, Octavio Gonzalez and colleagues, with an educational kalie from [employer]. EMEKA-7 Assessment Billing EMEKA-7 Assessment Tool: EMEKA-7 Assessment 32201 Review of Systems Const Denies body aches, Denies chills, Denies excessive sweating, Denies fatigue, Denies fever(s) and Denies headache(s) Eyes Denies blurry vision ENT Denies dysphagia, Denies vertigo, Denies dizziness, Denies headache(s), Denies hearing loss and Denies tinnitus Card Denies chest pain, Denies chest pain with activity, Denies syncope, Denies irregular heart rhythm and Denies dyspnea Resp Denies chest congestion, Denies cough, Denies hemoptysis, Denies dyspnea and Denies wheezing GI Denies abdominal pain, Denies melena, Denies hematochezia, Denies coffee ground emesis, Denies dysphagia, Denies diarrhea, Denies nausea and Denies vomiting Denies difficulty urinating, Denies dysuria, Denies urinary frequency, Denies urinary hesitancy and Denies urinary urgency Musc Denies arthralgias, Denies limited range of motion, Denies muscle cramps and Denies muscle weakness Skin/Breast Details: Skin irritation over left leg Reports rash and Denies skin ulcer Neuro Denies Abnormal speech present, Denies confusion, Denies vertigo, Denies dizziness, Denies syncope, Denies headache(s), Denies memory loss and Denies seizure-like activity Psych Denies anxiety, Denies confusion, Denies depression, Denies memory loss, Denies panic attacks and Denies paranoia Endo Denies excessive sweating, Denies fatigue, Denies flushing, Denies polydipsia and Denies polyuria Aller/Immun Denies wheezing Physical exam (Primary Care) Vital Signs: Last Vital Signs Temp 97.1 F 05/26/25 10:09 Pulse 68 05/26/25 10:09 Resp 18 05/26/25 10:09 BP 106/62 05/26/25 10:09 Pulse Ox 94 05/26/25 10:09 Oxygen Delivery Method Room Air 05/26/25 10:09 BMI result Body Mass Index 24.8 Tobacco/Smoking Status: Tobacco use Status Tobacco use date assessed 05/26/25 05/26/25 10:20 Patient Tobacco Use Status Never used Tobacco 05/26/25 10:20 e-Cigarette/Vaping Use Never Used 05/26/25 10:20 PHQ-9: PHQ-9 Score PHQ-9: Total score 0 05/26/25 10:20 Depression Screening Interpretation: Negative Thrive Assessment: Date of Thrive Assessment Date Thrive assessed 12/15/23 05/26/25 10:20 Currently or been in a relationship where the following occur: I choose not to answer Const General: cooperative, comfortable, no acute distress, alert and awake; No confusion Orientation/consciousness: oriented to person, oriented to place, patient oriented x3 and No confusion HENMT Head: Yes normocephalic Ears: external ears normal and TM's normal bilaterally Face and sinus: No sinus tenderness Mouth: Normal oral and palatal mucosa present and tongue normal Teeth and gingiva: dentition normal and gingiva normal Throat: Yes posterior oropharynx normal, Yes tonsils normal and Yes uvula midline Eyes Conjunctivae: conjunctivae normal Sclerae: sclerae normal Pupils: Equal, round and reactive pupils present EOM: EOMs intact bilaterally Direct Ophthalmoscopy: No no photophobia Neck Neck: Yes no lymphadenopathy, No tender and Yes no JVD Thyroid: Thyroid normal Carotids: no bruits Chest Chest palpation & inspection: no tenderness Resp Effort & Inspection: normal respiratory effort, no audible wheezes, not labored and no stridor Auscultation: no crackles, no rales, no rhonchi and no wheezes Cardio Jugular venous distension: no JVD Rate: regular rate, not bradycardic and not tachycardic Rhythm: regular rhythm Bruits: no carotid bruits Peripheral pulses: Peripheral pulses 2+ throughout GI Inspection: Yes normal to inspection, No abdominal wall ecchymosis and No visible herniation Palpation (GI): Soft to palpation, nontender, no guarding, not rigid and No hepatosplenomegaly present Auscultation: normoactive bowel sounds General: Yes no CVA tenderness Back/Spine/Pelvis Back: no CVA tenderness and No back tenderness Cervical Spine: cervical ROM normal Thoracic/Lumbar Spine: thoracic and lumbar spine normal to inspection, straight leg raise negative bilaterally, No thoraco-lumbar ROM limited and No lumbar spinal tenderness Skin Lesions: no lesions Rashes: no rashes Wounds: no wounds Neuro General: oriented to person, oriented to place, patient oriented x3, CN's II-XI intact bilaterally and No confusion Cranial nerves: Yes Equal, round and reactive pupils present and Yes Normal accommodation reflex present Cognition (Neuro): normal cognition Speech: No Abnormal speech present Gait exam (Neuro): Normal gait present Motor exam (neuro): 5/5 motor strength present throughout Extrem Right upper extremity: full ROM; no cyanosis Left upper extremity: full ROM; no cyanosis Right lower extremity: no edema Left lower extremity: no edema Psych Appearance: grossly normal Mental Status: mental status grossly normal Affect: normal affect Attitude: cooperative Thought process: Normal thought process present Coding Level of Care Code Est Pt Prev Care 40-64y(64851) Diagnoses Annual physical exam Z00.00 Skin irritation R23.8 Acute urticaria L50.8 Additional Codes PHQ-9 - 14356 - PHQ-9 Billing: Yes ([id number]) EMEKA-7 Assessment Billing - EMEKA-7 Assessment Tool: EMEKA-7 Assessment 18319 ([id number]) Assessment & Plan Assessment & Plan (1) Annual physical exam: Code(s): Z00.00 - Encounter for general adult medical examination without abnormal findings Category: Medical Plan: As per HPI (2) Skin irritation: Code(s): R23.8 - Other skin changes Category: Medical Plan: Has a skin irritation over the left calf region, will supply patient with a topi alexia steroid ointment to use on an as needed basis. (3) Acute urticaria: Code(s): L50.8 - Other urticaria Category: Medical Plan: We also addressed the management of hives with cetirizine and the addition of a topical steroid ointment. Orders: Orders Comprehensive Jackson. Panel Fast Today Z13.1 - Encounter for screening for diabetes mellitus Complete Blood Count no Diff Today Z13.1 - Encounter for screening for diabetes mellitus Prostate Specific Antigen Scr Today Z12.5 - Encounter for screening for malignant neoplasm of prostate, Z13.1 - Encounter for screening for diabetes mellitus Medications: New triamcinolone acetonide 0.1% 1 appl topical DAILY PRN 80 grams 0RF skin irritation 30 days R23.8 - Other skin changes Changed From pantoprazole 40 mg PO DAILY K21.9 - Gastro-esophageal reflux disease without esophagitis To pantoprazole 40 mg (2 x 20 mg) PO DAILY 180 tabs 1RF 90 days K21.9 - Gastro- esophageal reflux disease without esophagitis
--- OUTSIDE RECORDS SUMMARY | 2025-05-26 11:21 | XMS_ITS | Patient Health Record ---
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 Name Role Phone Jorge Montejo Primary Care [...] Status Risk Notes Problem Colon cancer screening (586359739) Colon cancer screening (Z12.11) Active confirmed Problem 33124202 Rectal bleeding (K62.5) Active confirmed Problem 78591228 Epigastric pain (R10.13) Active confirmed Problem 863231610 Bloating (R14.0) Active confirmed Problem Pre-procedure evaluation check (772893681) Encounter for other preprocedural examination (Z01.818) Active confirmed Problem 70903882 Constipation, unspecified constipation type (K59.00) Active confirmed Problem 777540188 GERD without esophagitis (K21.9) Active confirmed Problem Left upper quadrant pain (689486631) LUQ pain (R10.12) Active confirmed Problem 66714026 Change in bowel function (R19.8) Active confirmed Vital Signs Temperature 97.5 degrees Fahrenheit 04/27/2025 Blood pressure diastolic 01 mm Hg 04/27/2025 Height 72 in 04/27/2025 Blood pressure systolic 001 mm Hg 04/27/2025 Weight 189.4 lbs 04/27/2025 BMI 25.68 kg/m2 04/27/2025 Encounters Encounter Location Date Provider Diagnosis [facility] [address] [place] [id number] 04/27/2025 Servando Lange Jr Colon cancer screening [...] Name:Servando garcia Jr, 05/27/2025 08:20:00 AM, [address] , [place], [place], [id number], Insurance Providers Payer Name Payer Address Payer Phone Subscriber Number Group Number Insured Name Patient Relationship to Insured Coverage Start Date Coverage End Date [facility] [address] [facility] [place] [phone] [id number] KYLIE Nelson LESLIE Self - patient is the insured Medical (General) History Medical History History ICD Code urticaria gastroesophageal reflux dise [facility], 01/13 EGD showed a 3 cm hiatal hernia and no evidence of H. pylori or Bhardwaj's esophagus. colonoscopy 01/13, multiple colonic polyp s, 3-year follow-up Surgical History Surgery Date(Month/Year) knee surgery-right hernia repair X2
== END 2025-05-26 10:47 | disposition home or self-care (01) ==
LOC: HO.HMCH 10:03
PROVIDERS: PCP Physician Assistant; Visit Provider Physician Assistant
DX: Z00.00 Encounter for general adult medical examination without abnormal findings (principal); R23.8 Other skin changes; L50.8 Other urticaria

== ENCOUNTER → 2025-05-26 10:01 | Outpatient (BNVA) | payer OTHER, SELFPAY | PROVIDERS: PCP Physician Assistant; Visit Provider Physician Assistant | DX: Z00.00 Encounter for general adult medical examination without abnormal findings (principal); K21.9 Gastro-esophageal reflux disease without esophagitis; L50.1 Idiopathic urticaria; R23.8 Other skin changes; L50.8 Other urticaria | CPT/HCPCS: 96127 ==

== ENCOUNTER 2025-05-27 06:46 | Day surgery (SDC) | payer OTHER, SELFPAY ==
--- OUTSIDE RECORDS SUMMARY | 2025-04-27 05:40 | XMS_ITS ---
Author Organization [facility] Address [address] [place] [address] Care Team Providers Care Head Coach Name Role Phone Jorge Montejo Primary Care Provider Unavailab Servando Zuñiga Jr Unavailable [phone] Allergies No Known Allergies REASON FOR VISIT Patient presents today for a screening colonoscopy Medications Medication SIG (Take, Route, Frequency, Duration) Notes Start Date End Date Status Lactulose 10 GM/15ML TAKE 30ML BY MOUTH TWICE DAILY NEEDED FOR CONSTIPATION Oral for 10 Active Levocetirizine Dihydrochloride 5 MG TAKE 1 TABLET BY MOUTH EVERY DAY EVERY MORNING Oral for 30 Active DOK 100 MG TAKE ONE CAPSULE BY MOUTH DAILY Oral for 90 Active predniSONE 5 MG Oral for 14 Ac tive Metoclopramide HCl 5 MG TAKE 1 TABLET BY MOUTH THREE TIMES DAILY FOR 15 DAYS Diagnosis Unavailable Oral for 15 Active Pantoprazole Sodium 40 MG 1 tablet Orall y Once a day for 30 day(s) 01/12/2021 Active Cetirizine HCl 10 MG TAKE 1 TABLET BY MO UTH DAILY Oral for 90 Active Immunizations Vaccine Route Administration Date Status Comme nts Influenza Unknown 04/27/2025 Refused Social History Alcohol Screen Question Answer [...] Problem Status W/U Status Risk Notes Problem Pre-procedure evaluation check (166765039) Encounter for other preprocedural examination (Z01.818) Active confirmed Vital Signs Temperature 97.5 degrees Fahrenheit 04/27/20 25 Blood pressure systolic 001 mm Hg 04/27/20 25 Blood pressure diastolic 01 mm Hg 025 Height 72 in 04/27/2025 Weight 189.4 lbs 04/27/2025 BMI 25.68 kg/m2 04/27/2025 Encounters Encounter Location Date Provider Diagnosis [facility] [address] [place] [id number] 04/27/2025 Servando Lange Jr Colon cancer screening Z12.11 and Encounter for other preprocedural examination Z01.818 Assessments Encounter Date Diagnosis (ICD Code) Assessment Notes Treatment Notes Treatment Clinical Notes Section Notes 04/27/2025 Colon cancer screening (ICD-10 - Z12.11) 04/27/2025 Encounter for other preprocedural examination (ICD-10 - Z01.818) Plan Of Treatment Future Test Test Name Order Date COLONOSCOPY 04/27/2025 Next Appt Details Follow Up: 1 Year, Reason: Provider Name:Servando garcia Jr, 05/27/2025 08:20:00 AM, [address] [place] [address], [id number], Progress Notes * LESLIE FREITASDOB:1959 (65 yo M)Acc No.[id number]:04/27/2025 Progress Notes Patient: LESLIE SAXENA Provider: Josee Lange MD :1960 A ge:65 Y S ex:Male Date:04/27/2025 Address:[address] [place], [place] [id number] Pcp:Jorge Montejo Subjective: * Chief Complaints: * 1 . Patient presents today for a screening colonoscopy. * HPI: N ew symptom(s): The patient is a pleasant 65-year-old man seen today in consultation. He has a history of colon polyps and last underwent colonoscopy in December 2021 with removal of multiple tubular adenomas, 3-year follow-up recommended. Since we saw him last, he has been treated with lactulose for some constipation but reports bowel movements are generally normal without blood. Weight and appetite have been stable. * ROS: G eneral/Constitutional: Change in appetite d enies. F atigue d enies. ? E NT: Patient denies d ifficulty swallowing. R espiratory: Patient denies s hortness of breath. C ardiovascular: Patient denies c hest pain. G astrointestinal: Comments S [facility] for details. G enitourinary: Difficulty urinating d enies. I ncontinence d enies. M usculoskeletal: Patient denies m uscle aches. S kin: Patient denies p ruritis. N eurologic: Patient denies l ow back pain. P sychiatric: Patient denies m ental or physical abuse. * Medical History: U rticaria, gastroesophageal reflux disease, 01/13 EGD showed a 3 cm hiatal hernia and no evidence of H. pylori or Bhardwaj's esophagus., Colonoscopy 01/13, multiple colonic polyps, 3-year follow-up. * Surgical History: h ernia repair X2 , knee surgery-right . * Family History: F ather: , diagnosed with HTN (hypertension). M other: . no known hx of colon ca. No family history of liver cancer. * Social History: T obacco Use: T obacco Use/Smoking A re you a: nonsmoker. D rugs/Alcohol: A lcohol Screen D id you have a drink containing alcohol in the past year? Y es, H ow often did you have a drink containing alcohol in the past year? 2 to 4 times a month (2 points), H ow many drinks did you have on a typical day when you were drinking in the past year??3 or 4 drinks (1 point), P oints 3 , I nterpretation N egative. M iscellaneous: M arital status: single. 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 * Medications: T aking Lactulose 10 GM/15ML Solution TAKE 30ML BY MOUTH TWICE DAILY NEEDED FOR CONSTIPATION Oral , Taking DOK 100 MG Capsule TAKE ONE CAPSULE BY MOUTH DAILY Oral , Taking Cetirizine HCl 10 MG Tablet TAKE 1 TABLET BY MOUTH DAILY Oral , Taking Pantoprazole Sodium 40 MG Tablet Delayed Release 1 tablet Orally Once a day , Taking Levocetirizine Dihydrochloride 5 MG Tablet TAKE 1 TABLET BY MOUTH EVERY DAY EVERY MORNING Oral , Taking Metoclopramide HCl 5 MG Tablet TAKE 1 TABLET BY MOUTH THREE TIMES DAILY FOR 15 DAYS Diagnosis Unavailable Oral , Taking predniSONE 5 MG Tablet Oral , Medication List reviewed and reconciled with the patient * Allergies: N .K.D.A. Objective: * Vitals: W t:189.4lbs, Ht: 72 in, BMI:25.68Index, BP:001/01mm Hg, Temp:97.5, Wt-k.91. * Examination: G eneral Examination: GENERAL APPEARANCE: i n no acute distress. HEAD: n ormocephalic. EYES: s clera non-icteric. ORAL CAVITY: m ucosa moist. NECK/THYROID: n o lymphadenopathy. SKIN: a nicteric. HEART: S 1, S2 normal, no murmurs. LUNGS: c lear to auscultation bilaterally. CHEST: n ormal shape and expansion. ABDOMEN: s oft, nontender, nondistended, bowel sounds present, no organomegaly . EXTREMITIES: n o clubbing, cyanosis, or edema. PSYCH: c ognitive function intact. Assessment: * Assessment: 1. E ncounter for other preprocedural examination - Z01.818 (Primary) 2 . C olon cancer screening - Z12.11 Plan: * Treatment: * Immunizations: Influenza (Not administered - Refused: Patient decision) * Preventive Medicine: Counseling: C are goal follow-up plan: A milind Normal BMI Follow-up D ietary management education, guidance, and counseling, B UT management provided Y es. * Follow Up: 1 Year * * Sign off status: Completed true * Provider: Josee Lange MD Date: 0 04/27/2025 Generated for Jairon samano/Mari/Darlinitting on: 04/28/2025 02:28 PM EDT History and Physical Notes * HPI (History of Present Illness) Category Sub-Category Detail Notes Category Not es New symptom(s) The patient is a pleasant 65-year-old man seen today in consultation. He has a history of colon polyps and last underwent colonoscopy in December 2021 with removal of multiple tubular adenomas, 3-year follow-up recommended. Since we saw him last, he has been treated with lactulose for some constipation but reports bowel movements are generally normal without blood. Weight and appetite have been stable. Examination Category Sub-Category Detail Notes Category Not es General Examination GENERAL APPEARANCE: in no acute di stress HEAD: normocephalic EYES: sclera non-icteric NECK/THYROID: no lymphadenopathy HEART: S1, S2 normal, no mu rmurs CHEST: normal shape and exp ansion LUNGS: clear to auscultatio n bilaterally ABDOMEN: soft, nontender, non distended, bowel sounds present, no organomegaly SKIN: anicteric EXTREMITIES: no clubbing, cyanosi s, or edema PSYCH: cognitive function i ntact ORAL CAVITY: mucosa moist
--- OUTSIDE RECORDS SUMMARY | 2025-04-28 14:29 | XMS_ITS | Patient Health Record ---
Author Organization [facility] Address [address] [place] [address] Care Team Providers Care System Software Developer Name Role Phone Jorge Montejo Primary Care [...] MO UTH DAILY Oral for 90 Active DOK 100 MG TAKE ONE CAPSULE BY MOUTH DAILY Oral for 90 Active predniSONE 5 MG Oral for 14 Ac tive Metoclopramide HCl 5 MG TAKE 1 TABLET BY MOUTH THREE TIMES DAILY FOR 15 DAYS Diagnosis Unavailable Oral for 15 Active Immunizations Vaccine Route Administration Date Status Comme nts Influenza Unknown 06/16/2018 Administered Influenza Unknown 10/24/2019 Administered Influenza Unknown 12/31/2021 Refused Influenza Unknown 04/27/2025 Refused Social History Alcohol [...] Status Risk Notes Problem Colon cancer screening (130936116) Colon cancer screening (Z12.11) Active confirmed Problem 07605004 Rectal bleeding (K62.5) Active confirmed Problem 20591408 Epigastric pain (R10.13) Active confirmed Problem 302592297 Bloating (R14.0) Active confirmed Problem Pre-procedure evaluation check (603304345) Encounter for other preprocedural examination (Z01.818) Active confirmed Problem 68864804 Constipation, unspecified constipation type (K59.00) Active confirmed Problem 407910727 GERD without esophagitis (K21.9) Active confirmed Problem Left upper quadrant pain (305358974) LUQ pain (R10.12) Active confirmed Problem 51833020 Change in bowel function (R19.8) Active confirmed Vital Signs Temperature 97.5 degrees Fahrenheit 04/27/2025 Blood pressure diastolic 01 mm Hg 04/27/2025 Height 72 in 04/27/2025 Blood pressure systolic 001 mm Hg 04/27/2025 Weight 189.4 lbs 04/27/2025 BMI 25.68 kg/m2 04/27/2025 Encounters Encounter Location Date Provider Diagnosis [facility] [address] [place] [phone] 04/27/2025 Servando Lange Jr Colon cancer screening Z12.11 and Encounter for other preprocedural examination Z01.818 Assessments Encounter Date Diagnosis (ICD Code) Assessment Notes Treatment Notes Treatment Clinical Notes Section Notes 04/27/2025 Colon cancer screening (ICD-10 - Z12.11) 04/27/2025 Encounter for other preprocedural examination (ICD-10 - Z01.818) Plan Of Treatment Pending Test Test Name Order Date LIVER PROFILE 12/23/2019 LIPASE 12/23/2019 CBC w/o DIFF 12/23/2019 CELIAC DISEASE ANTIBODY PANEL 12/23/2019 CT ABD WITH PO CONTRAST ONLY 11/12/2013 TSH REFLEX FREE T4 12/23/2019 Future Test Test Name Order Date COLONOSCOPY 07/08/2013 COLONOSCOPY 08/05/2018 UPPER GI ENDOSCOPY 01/12/2021 UPPER GI ENDOSCOPY 12/31/2021 COLONOSCOPY 12/31/2021 COLONOSCOPY 04/27/2025 Next Appt Details Provider Name:Servando garcia Jr, 05/27/2025 08:20:00 AM, [address] [facility] , [place], [place], [id number], Insurance Providers Payer Name Payer Address Payer Phone Subscriber Number Group Number Insured Name Patient Relationship to Insured Coverage Start Date Coverage End Date [facility] [address] [facility] [id number] [phone] [id number] KYLIE Nelson LESLIE Self - patient is the insured Medical (General) History Medical History History ICD Code urticaria gastroesophageal reflux dise [facility], 01/13 EGD showed a 3 cm hiatal hernia and no evidence of H. pylori or Bhardwaj's esophagus. colonoscopy 01/13, multiple colonic polyp s, 3-year follow-up Surgical History Surgery Date(Month/Year) knee surgery-right hernia repair X2
[2025-05-25 12:26] VITALS: BMI 25.7
--- NOTE | 2025-05-25 14:56 | HO.ANESPROP2 ---
Documented by User: Joyce Ly NP 05/25/25 14:56 HPI - Anesthesia Eval Consult details Narrative: 65yo M for Colonoscopy PMFSH Active Problems Active Problems: All Active Problems Postop check (Acute) Sebaceous cyst (Acute) Inflamed sebaceous cyst (Acute) Anemia (Acute) Subcutaneous cyst (Acute) Foot pain, right (Acute) Ankle edema (Acute) Abscess (Acute) Abdominal bloating (Acute) Tinea corporis (Acute) Allergic rhinitis (Acute) Lumbar spine pain (Acute) Acute urticaria (Acute) Annual physical exam (Acute) Constipation (Acute) Screening for hypercholesterolemia (Acute) Screening for hypothyroidism (Acute) Screening for diabetes mellitus (DM) (Acute) GERD (gastroesophageal reflux disease) (Acute) Past Medical History Medical History Hiatal hernia COVID-19 vaccine series completed GERD (gastroesophageal reflux disease) Allergic reaction Family History Family History Father In good health Mother In good health Family history of problems with anesthesia: No Surgical History Surgical History History of esophagogastroduodenoscopy (EGD) (12/2021) Hx of hernia repair H/O colonoscopy (12/2021) History of right knee surgery History of Problems with Anesthesia: No Social History Social History Housing: House Alcohol intake: current Alcohol intake frequency: a few times a month Patient Tobacco Use Status: Never used Tobacco e-Cigarette/Vaping Use: Never Used Second Hand Smoke Exposure: No Use of substances other than those prescribed or required for medical reasons: No Advance Directives: No Advance Directives Information Provided: Yes service: No Current occupational status: employed Current occupation: [employer] Cognitive needs: No Hearing needs: No Vision needs: Yes Meds Allergies Allergy/AdvReac Type Severity Reaction Status Date / Time doxycycline AdvReac Intermediate Rash Verified 05/26/25 10:32 Home Medications ?Medication ?Instructions ?Recorded ?Confirmed ?Last Taken ?Type docusate sodium 100 mg capsule 100 mg PO DAILY 05/25/25 05/26/25 Unknown History Exam Height,Weight and Vital Signs: Height 6 ft Weight 85.842 kg Assessment and Plan Assessment Anesthesia Assessment: Chart Reviewed Final Anesthetic Review Family History of Problems with Anesthesia: No History of Problems with Anesthesia: No Documented by User: Blanca Christianson MD 05/27/25 08:12 [facility] Past Medical History Medical History Hiatal hernia COVID-19 vaccine series completed GERD (gastroesophageal reflux disease) Allergic reaction Family History Family History Father In good health Mother In good health Surgical History Surgical History History of esophagogastroduodenoscopy (EGD) (12/2021) Hx of hernia repair H/O colonoscopy (12/2021) History of right knee surgery Social History Social History Housing: House Alcohol intake: current Alcohol intake frequency: a few times a month Patient Tobacco Use Status: Never used Tobacco e-Cigarette/Vaping Use: Never Used Second Hand Smoke Exposure: No Use of substances other than those prescribed or required for medical reasons: No Advance Directives: No Advance Directives Information Provided: Yes service: No Current occupational status: employed Current occupation: [employer] Cognitive needs: No Hearing needs: No Vision needs: Yes Meds Allergies Allergy/AdvReac Type Severity Reaction Status Date / Time doxycycline AdvReac Intermediate Rash Verified 05/26/25 10:32 Home Medications ?Medication ?Instructions ?Recorded ?Confirmed ?Last Taken ?Type docusate sodium 100 mg capsule 100 mg PO DAILY 05/25/25 05/26/25 Unknown History Exam Airway Mallampati Class: III TM Dist: >3cm Neck ROM: Full Loose/Missing/Broken Teeth: No Heart: RRR Lungs: CTA Assessment and Plan Assessment Anesthesia Assessment: Anesthesia Plan Discussed Final Anesthetic Review NPO: Yes ASA Class: II Final Preanesthetic Review: Meds/Allgs Chart Reviewed and Consent Obtained/Reviewed Patient Risk: Low Procedure Risk: Low Anesthetic Plan Anesthetic Plan: MAC: Disposition: Standard PACU
[2025-05-27 07:04] VITALS: BMI 25.1
[2025-05-27 07:14] VITALS: BP 115/76; PULSE 67; RESP 16; TEMP 36.3; O2SAT 100
[2025-05-27] MEDS: Lactated Ringers 1,000 ML 100 ML IVCONT (07:15)
--- NOTE | 2025-05-27 08:11 | MHC.SHP ---
Pre-Procedural Eval Section A - 24 Hr Update-Section A only Date of Service: 05/27/25 Section B - Complete if H&P > 30 days Chief Complaint: screening Details of Present Illness: see H&P no changes Relevant Family History (Specify if Yes): No Relevant Social History: None Present Medications: see Short Stay Collaborative assessment Medical History: No relevant PMH History of Previous Operations: No relevant previous surgery Allergies: Allergies Allergy/AdvReac Type Severity Reaction Status Date / Time doxycycline AdvReac Intermediate Rash Verified 05/26/25 10:32 Review of Systems Sugical H&P ROS: Negative: Constitution, Cardiovascular, Respiratory, Neurological, Psychiatric, Hem-Onc, Allergic/Immunologic, Gastrointestinal, Genitourinary, Musculoskeletal, Integumentary, Endocrine and Eyes/Ears/Nose/Throat Exam Surgical H&P Exam: Normal: HEENT, Normal: Heart, Normal: Lungs, Normal: Extremities, Normal: Abdomen, Normal: Skin and Normal: Neurological Plan Diagnosis/Plan: Unchanged I have reviewed the history and physical and performed a pertinent physical examination on my patient. No changes have occurred unless specified. Time Spent With Patient Time: Total time managing care of this patient today ____ minutes.
[2025-05-27 08:56] VITALS: BP 91/63; PULSE 63; RESP 16; TEMP 36.2; O2SAT 99
[2025-05-27 09:11] VITALS: BP 106/74; PULSE 60; RESP 18; TEMP 36.1; O2SAT 99
--- NOTE | 2025-05-27 10:57 | OP_ITS ---
DATE OF SERVICE: 05/27/2025 SURGEON: Servando Lange MD INDICATIONS: Colon cancer screening and prior history of adenomatous colon polyps. PREOPERATIVE DIAGNOSIS: POSTOPERATIVE DIAGNOSIS: PROCEDURE PERFORMED: Colonoscopy to the terminal ileum. ESTIMATED BLOOD LOSS: COMPLICATIONS: ANESTHESIA: Monitored anesthesia care. ASSISTANTS: SPECIMENS: DESCRIPTION OF PROCEDURE: A history and physical was performed. The risks and benefits of the procedure were explained to the patient and informed consent was obtained. The patient was placed in the left lateral decubitus position. A digital rectal exam was performed and was found to be normal. The Olympus pediatric video colonoscope was introduced into the rectum and advanced to the cecum. The cecum was identified by transillumination, palpation, and identification of ileocecal valve. Examination was performed. The scope was removed. He tolerated the procedure well and was returned to the recovery area in stable condition. FINDINGS: The terminal ileum was examined and appeared normal. The visualized colonic mucosa was normal. The quality of the prep was good. No polyps were identified. Retroflexed examination was normal. In the rectum was a small piece of ingested plastic material, which was removed with a digital examination. IMPRESSION: Normal colonoscopy. RECOMMENDATION: 1. Follow up as needed. 2. Repeat colonoscopy is recommended in 5 years because of prior history of colon polyps. MD STEPHANIE Orr/JACI / [id number]
== END 2025-05-27 09:33 | disposition home or self-care (01) ==
PROVIDERS: PCP Physician Assistant; Visit Provider Internal Medicine Gastroenterology
PROC: 0DJD8ZZ Inspection of Lower Intestinal Tract, Via Natural or Artificial Opening Endoscopic (ICD-10-PCS; CPT 45378; principal; 2025-05-27 08:20)
DX: Z12.11 Encounter for screening for malignant neoplasm of colon (principal); Z86.0101 Personal history of adenomatous and serrated colon polyps
CPT/HCPCS: 45378; J2003; J2704